=== PATIENT | female | born 1940 | race Caucasian/White ===

== ENCOUNTER 2017-04-12 06:26 | Inpatient (IN) | payer MEDICARE, OTHER ==
[2017-04-09 08:25] VITALS: BMI 24.5
[2017-04-12] MEDS ORDERED: Sodium Chloride 0.9% 10 ML ONE (07:01)
[2017-04-12] MEDS ORDERED: Fentanyl 100 MCG/2 ML VIAL ONE ×3 (07:07→10:22)
[2017-04-12 07:23] LABS: #Basophils 0.1 thou/uL (0.0-0.2); #Eosinphils 0.3 thou/uL (0.0-0.7); #Lymphocytes 2.9 thou/uL (1.20-3.40); #Monocytes 0.8 thou/uL (0.11-0.59); #Neutrophils 2.9 thou/uL (1.40-6.50); %Basophils 1.1 % (0.0-1.0); %Eosinophils 3.9 % (0.0-10.0); %Lymphocytes 41.6 % (21.0-51.0); %Monocytes 11.6 % (0.0-10.0); Hematocrit 42.9 % (36.0-47.0); Red Blood Cell (RBC) Count 4.45 mill/uL (4.20-5.40); White Blood Cell (WBC) Count 6.9 thou/uL (4.8-10.8)
[2017-04-12] MEDS ORDERED: CEFAZOLIN/Water 2 GM/20 ML SYRINGE ONE (07:24)
[2017-04-12 07:41] LABS: Anion Gap 9 mmol/L (10-20); BUN (Urea Nitrogen) 20 mg/dL (9.8-20.1); Calc. Creatinine Clearance 43 mL/min (70-130); Calcium 10.3 mg/dL (7.8-10.44); Carbon Dioxide 34 mmol/L (23-31); Chloride 103 mmol/L (98-107); Estimated GFR-MDRD 54
--- NOTE | 2017-04-12 09:27 | OP ---
DATE OF PROCEDURE: 04/12/2017 SURGEON: Esteban Reynaga M.D. DOCKING PILOT: Brenden Marinelli PROCEDURE: Removal of hardware C5-6, exploration of spinal fusion C5-6, anterior cervical discectomy C4-5, interbody arthrodesis, intravertebral biomechanical device, local morselized autograft, demine ralized bone matrix, anterior titanium instrumentation C4-5. PROCEDURE IN DETAIL: The patient was brought into the operating room, intubated. She was positioned supine with the head in modest extension on a gel-filled donut. Incision was made in the right prec ervical area and dissecting medial to the sternocleidomastoid muscle we identified the anterior cervi leana spine and our level was confirmed by x-ray. We debrided anterior osteophytes, placed distraction across the disc space and completely decompressed the spinal cord at C4-5. Next, the bony endplates were decorticated for the purpose of arthrodesis and appropriately sized intravertebral biomechanica l PEEK device was brought into the field, filled with demineralized bone matrix and local morselized autograft, and tapped into place securely at C4-5. Next, an anterior plate was brought in the field and secured to C4 and C5 using two 14 mm screws at each level. The wound was then extensively irriga amanuel, immaculate hemostasis was secured, and the wound was closed in anatomic layers.
[2017-04-12] MEDS ORDERED: Promethazine HCl 25 MG/ML VIAL IM PRN ×2 (09:30→12:08)
[2017-04-12] MEDS ORDERED: Ondansetron HCl/PF 4 MG/2 ML Vial IVP PRN (09:30)
[2017-04-12] MEDS ORDERED: Promethazine HCl 25 MG/ML VIAL SLOW IVP PRN (09:30)
[2017-04-12] MEDS ORDERED: Ketorolac Tromethamine 30 MG/ML VIAL ONE ×2 (09:42→17:29)
[2017-04-12] MEDS ORDERED: tiZANidine HCl 4 MG TAB ONE (11:07)
[2017-04-12] MEDS ORDERED: Mag-Al 1200 mg/1200 mg/30 ML UDCUP PO PRN (12:08)
[2017-04-12] MEDS ORDERED: tiZANidine HCl 4 MG TAB PO PRN (12:08)
[2017-04-12] MEDS ORDERED: diphenhydrAMINE 25 MG CAP PO PRN (12:08)
[2017-04-12] MEDS ORDERED: Sodium Chloride 0.9% 1,000 ML IV SCH (12:08)
[2017-04-12] MEDS ORDERED: HYDROcodone/Acetaminophen 10/325 mg Tablet PO PRN (12:08)
[2017-04-12] MEDS ORDERED: Milk Of Magnesia 30 ML UDCUP PO PRN (12:08)
[2017-04-12] MEDS ORDERED: Morphine 4 MG/ML Carpuject SLOW IVP PRN (12:08)
[2017-04-12] MEDS ORDERED: diphenhydrAMINE 50 MG/ML VIAL IVP PRN (12:08)
[2017-04-12] MEDS ORDERED: Promethazine HCl 12.5 MG SUPP PR PRN (12:08)
[2017-04-12] MEDS ORDERED: Morphine PF 1 MG/ML SYR IVP PRN (12:26)
[2017-04-12] MEDS ORDERED: MORPHINE 10 MG/ML SYRINGE SLOW IVP PRN (12:28)
[2017-04-12] MEDS ORDERED: hydrALAZINE 20 MG/ML VIAL SLOW IVP PRN (12:34)
[2017-04-12] MEDS: Sodium Chloride 0.9% 1,000 ML IV SCH (13:26)
[2017-04-12] MEDS: CEFAZOLIN/Water 2 GM/20 ML SYRINGE SLOW IVP SCH ×2 (13:40→22:29)
[2017-04-12] MEDS: Ondansetron HCl/PF 4 MG/2 ML Vial IVP PRN (16:37)
[2017-04-12] MEDS: Ketorolac Tromethamine 30 MG/ML VIAL IVP SCH (17:15)
[2017-04-12] MEDS ORDERED: Dexamethasone 20 MG/5 ML VIAL ONE (17:29)
[2017-04-12] MEDS ORDERED: Glycopyrrolate 0.2 MG/ML 5 ML SYRINGE ONE (17:29)
[2017-04-12] MEDS ORDERED: Ondansetron HCl/PF 4 MG/2 ML Vial ONE (17:29)
[2017-04-12] MEDS ORDERED: Propofol 200 MG/20 ML VIAL ONE (17:29)
[2017-04-12] MEDS ORDERED: Lidocaine 1% PF 5 ML VIAL ONE (17:29)
[2017-04-12] MEDS: Metoprolol Tartrate 25 MG TAB PO SCH (20:50)
[2017-04-12] MEDS ORDERED: Morphine 10 MG/ML CARPUJECT SLOW IVP PRN (21:05)
--- NOTE | 2017-04-12 23:43 | CON ---
DATE OF CONSULTATION: 04/12/2017 REASON FOR ADMISSION: Neck pain. The patient had a procedure removal of hardware from C5-C6, explor ation of the spinal fusion, C5-C6 anterior cervical discectomy, C4-C5 interbody and arthrodesis, intr avertebral biomechanical device. REASON FOR CONSULT: Medical management. CONSULTING PHYSICIAN: Dr. Reynaga. BRIEF HOSPITAL COURSE: This is a 77-year-old pleasant lady who came into the hospital for the above- mentioned procedure for the neck pain. She had the procedure and is doing great and has been admitte d to the hospital for observation. I have been consulted for medical management. At the time of my interview, she says the pain control is adequate. No nausea, no vomiting, no chest pain, no diarrhea or dysuria. PAST MEDICAL HISTORY: Significant for coronary artery disease, hypertension, hyperlipidemia, periphe ral vascular disease, chronic pain, and osteoarthritis. PAST SURGICAL HISTORY: Significant for bilateral iliac artery stenting, aortoiliac construction surg jocelyn in 2004. The patient also had a , hysterectomy, PTCA with stent placement to the RCA an d of the left main artery in 11/2012. FAMILY HISTORY: Father at age of 83, cause of was COPD I think. Mother at age of 79 , cause of was CVA. SOCIAL HISTORY: Used to smoke, does not smoke anymore. No alcohol use. No recreational drug use. Lives with her , who has 3 strokes and takes care of him. She also works part-time. ALLERGIES: NIACIN, PLETAL, VYTORIN, AND AUGMENTIN. CURRENT MEDICATIONS: Please see MAR. REVIEW OF SYSTEMS: Significant for some surgical discomfort in the neck, otherwise no fever, no chil ls, no headache, no appetite, no hearing loss, no latencies, no cough. No chest pain, diarrhea, dysu janeen, or polyuria. No memory or mood changes. PHYSICAL EXAMINATION: VITAL SIGNS: Blood pressure is 103/51, afebrile, pulse is 55, respirations 18, breathing comfortably on 2 liters. GENERAL: The patient is lying in bed, in mild distress because of the surgery. HEENT: Atraumatic, normocephalic. Pupils are equally round and reactive to light. Extraocular move ments are intact. Mucous membranes are moist. NECK: No JVD. Scar. There is a dressing seen on the neck. CHEST: Breath sounds heard. No rales or rhonchi. HEART: S1, S2. No murmurs, rubs, or gallops. ABDOMEN: Soft. EXTREMITIES: No cyanosis, clubbing, or edema. Distal pulses present. NEUROLOGICAL: Alert and oriented. No cranial deficits. No sensorimotor deficits. LABORATORY DATA: WBC count is 6.9, hemoglobin is 13.4. Sodium is 142, potassium is 3.7, BUN is 20, creatinine is 0.99. ASSESSMENT AND PLAN: 1. High blood pressure. We will put the patient on lisinopril 20 mg p.o. daily and metoprolol tartr ate 25 p.o. b.i.d. and give her p.r.n. hydralazine as she starts eating more and comes back to normal . We will resume home medications if needed. 2. Chronic back pain. We will continue pain medications and post-surgical pain is controlled with I V morphine. 3. Peripheral artery disease appears to be stable right now. 4. Coronary artery disease, status post stent, stable right now. 5. Hyperlipidemia. We will continue home medications at the time of discharge. 6. Osteoarthritis, stable as of now. Thank you Dr. Reynaga for letting me to participate in this patient's care. I will follow with you and make necessary recommendations as the clinical course evolves.
[2017-04-13] MEDS: Ketorolac Tromethamine 30 MG/ML VIAL IVP SCH ×2 (00:06→06:02)
[2017-04-13] MEDS: HYDROcodone/Acetaminophen 10/325 mg Tablet PO PRN ×3 (00:09→08:21)
[2017-04-13] MEDS ORDERED: hydrALAZINE 20 MG/ML VIAL SLOW IVP PRN ×2 (06:27)
[2017-04-13] MEDS: Sodium Chloride 0.9% 1,000 ML IV SCH (06:40)
[2017-04-13] MEDS: Ondansetron HCl/PF 4 MG/2 ML Vial IVP PRN (07:14)
[2017-04-13] MEDS: Metoprolol Tartrate 25 MG TAB PO SCH (07:51)
[2017-04-13 08:26] VITALS: BP 161/67; TEMP 97.6
[2017-04-13] MEDS ORDERED: Lisinopril 20 MG TAB PO SCH (09:00)
== END 2017-04-13 09:08 | disposition home or self-care (01) | DRG 472 ==
LOC: SURG A 06:26 → 3SE 11:44
PROVIDERS: ADMIT Neurological Surgery; ATTEND Neurological Surgery
PROC: 0RG20A0 Fusion of 2 or more Cervical Vertebral Joints with Interbody Fusion Device, Anterior Approach, Anterior Column, Open Approach (ICD-10-PCS; principal; 2017-04-12)
PROC: 01NB0ZZ Release Lumbar Nerve, Open Approach (ICD-10-PCS; 2017-04-12)
PROC: 0SB20ZZ Excision of Lumbar Vertebral Disc, Open Approach (ICD-10-PCS; 2017-04-12)
PROC: 0SP004Z Removal of Internal Fixation Device from Lumbar Vertebral Joint, Open Approach (ICD-10-PCS; 2017-04-12)
DX: M50.321 Other cervical disc degeneration at C4-C5 level (principal); M47.12 Other spondylosis with myelopathy, cervical region; I10 Essential (primary) hypertension; E78.5 Hyperlipidemia, unspecified; M19.90 Unspecified osteoarthritis, unspecified site; G89.29 Other chronic pain; I73.9 Peripheral vascular disease, unspecified; Z87.891 Personal history of nicotine dependence; Z88.0 Allergy status to penicillin; Z88.8 Allergy status to other drugs, medicaments and biological substances; Z82.3 Family history of stroke; Z83.6 Family history of other diseases of the respiratory system
CPT/HCPCS: 76001; 80048; 85025; A4216; C1713; J1100; J1885; J2001; J2270; J2274; J2405; J2704; J3010; J3490

== ENCOUNTER 2017-04-27 09:47 | Outpatient (CLI) | payer MEDICARE, OTHER ==
--- NOTE | 2017-04-27 12:23 | RAD ---
RADIOGRAPH CERVICAL SPINE 3 VIEWS: HISTORY: 77-year-old female with cervicalgia, M54.2. Follow up surgery. COMPARISON: 01-06-17 FINDINGS: The previously demonstrated anterior metallic plate and screws at C5 and C6 have been removed. The ma rkers for the interbody cage remain at the C5-6 intervertebral space. There is osseous fusion between the C5 and C6 vertebral bodies. There has been interval widening of the previously severely narrowed C4-5 disc space, by placement of interbody cage (indicated by tiny metallic markers). There has been interval placement of anterior m etallic plate with screws, at C4 and C5. The retrolisthesis of C4 on C5 remains. Mild grade I anterolisthesis of C6 on C7 due to degenerative facet disease, is unchanged. Slightly th icker prevertebral soft tissues now compared to the previous study. Vertebral body heights are mainta ined. Atlantoaxial joints and odontoid process are normal. Diffuse osteopenia. IMPRESSION: 1. Interval anterior cervical discectomy and fusion procedure at C4-5, since the prior study. 2. Interval removal of ACDF hardware from C5-6 since the previous study. 3. Successful ankylosis between C5 and C6. GABY POS: [facility]
== END 2017-04-27 09:48 | disposition home or self-care (01) ==
LOC: TBSIIMAG 09:47
PROVIDERS: ATTEND Physician Assistant
DX: M54.2 Cervicalgia (principal); Z98.1 Arthrodesis status
CPT/HCPCS: 72040

== ENCOUNTER 2017-06-08 13:23 | Outpatient (CLI) | payer MEDICARE, OTHER ==
--- NOTE | 2017-06-08 14:52 | RAD ---
CERVICAL SPINE 3 VIEWS: HISTORY: Neck pain. Prior surgery. COMPARISON: 04/27/17. FINDINGS: Anterior fixation plate and interbody fusion material at the C4-5 level is again demonstrated without perihardware lucency. Interbody fusion material at the C5-6 level is again demonstrated. Vertebral body heights are maintained. Osteophytosis throughout the cervical spine is similar in soumya earance from previous study. There is calcification over each carotid bifurcation. IMPRESSION: 1. Postoperative changes of cervical spine. No acute osseous abnormalities. 2. Atherosclerosis. POS: [facility]
== END 2017-06-08 13:24 | disposition home or self-care (01) ==
LOC: TBSIIMAG 13:23
PROVIDERS: ATTEND Neurological Surgery
DX: M47.892 Other spondylosis, cervical region (principal); I70.90 Unspecified atherosclerosis; Z98.890 Other specified postprocedural states
CPT/HCPCS: 72040

== ENCOUNTER 2017-07-29 12:52 | Outpatient (CLI) | payer MEDICARE, OTHER ==
--- NOTE | 2017-07-29 14:50 | RAD ---
CERVICAL SPINE SERIES THREE VIEWS: History: Headaches, neck pain, left arm numbness. FINDINGS: There are extensive carotid bulb calcifications noted. Post-operative changes of the spine are noted. There is anterior plate and screws placed at the C4-5 level and bony fusion across C5-6. Markers are of the disc implants are within the confines of the disc levels. There are some degenerative osteoph ytic changes at C6-7. IMPRESSION: Postoperative changes and arthritic changes of the spine. Stable overall exam since a 06-08-17 study. POS: [facility]
== END 2017-07-29 12:53 | disposition home or self-care (01) ==
LOC: TBSIIMAG 12:52
PROVIDERS: ATTEND Neurological Surgery
DX: M47.12 Other spondylosis with myelopathy, cervical region (principal); Z98.890 Other specified postprocedural states
CPT/HCPCS: 72040

== ENCOUNTER → 2017-08-24 | Day surgery (SDC) | payer MEDICARE, OTHER ==
[~2017-08-24] MED LIST: Iopamidol-M 300 61% 15 ML VIAL ONE; Prevnar 13-Val Conj/PF 0.5 ML SYRINGE IM ONE
[2017-08-24 07:15] VITALS: TEMP 98.4
--- NOTE | 2017-08-24 10:53 | RAD ---
MYELOGRAM CERVICAL SPINE: Date: 08/24/17 HISTORY: Cervical stenosis. COMPARISON: None. FINDINGS: The patient was brought to the fluoroscopy suite. All questions were answered. Patient's back was prepped and draped in the normal sterile fashion. 3 mL lidocaine was instilled int o the superficial and deep soft tissues. 11 mL of contrast was instilled into the thecal sac using a 22 gauge spinal needle. The patient was p remedicated with standard prednisone and Benadryl mix. IMPRESSION: Technically successful fluoroscopic myelogram. POS: [facility]
--- NOTE | 2017-08-24 11:07 | CT ---
CT CERVICAL SPINE WITH CONTRAST; HISTORY: M48.02 (cervical stenosis). COMPARISON: None. FINDINGS: There are dense calcifications of the proximal internal carotid arteries and the carotid bulbs bilate rally. A very heterogeneous appearance of the thyroid with small nodules. There is mild central lob ular emphysema of the lung apices. No pneumothorax. The remainder of the paraspinal soft tissues is unremarkable. ACDF hardware at C4-C5 with diskectomy changes without hardware complication. Satisfactory appearanc e of the hardware. Prior fusion of C5-C6 with the C5-C6 disk space fused. There is normal cervical lordosis. The cerebellar tonsils terminate at the level of the foramen magn um. There is narrowing of the atlantodental articulation. There is no acute fracture or malalignment of the cervical spine. The mastoids are clear. The occipital condyles are intact. Levels are as follows: C2-C3: Mild degenerative disk space narrowing. No neural foramina or spinal canal narrowing. C3-C4: Mild circumferential disk bulge. Mild facet arthrosis. Moderate to severe left and mild rig ht sided facet arthropathy. Facet arthrosis causes moderate left-sided neural foraminal narrowing. C4-C5: Fusion. There is also ligamentum flavum hypertrophy. The thickened ligamentum flavum narrow s the dorsal CSF space. The spinal canal measures approximately 9 mm. The hypertrophic facet change s and uncinate process hypertrophy laterally causes moderate to severe right-sided neural foraminal n arrowing. C5-C6: Fusion changes. There is extensive uncinate process hypertrophy on the right, as well as mod erate hypertrophic facet changes. There is moderate to severe right-sided neural foraminal narrowing . Only mild left-sided neural foraminal narrowing. C6-C7: Low grade degenerative disk space height loss. Mild narrowing of the ventral CSF space. No significant spinal canal or neural foraminal narrowing. IMPRESSION: Multilevel spondylosis, predominantly neural foraminal narrowing, due to a combination of hypertrophi c facet changes, as well as uncinate process hypertrophy, as described above. No significant spinal canal narrowing. POS: [facility]
== END ==
LOC: RAD 06:47
PROVIDERS: ATTEND Neurological Surgery
PROC: B00B1ZZ Plain Radiography of Spinal Cord using Low Osmolar Contrast (ICD-10-PCS; principal; 2017-08-24)
DX: M48.02 Spinal stenosis, cervical region (principal); Z88.1 Allergy status to other antibiotic agents; Z88.8 Allergy status to other drugs, medicaments and biological substances
CPT/HCPCS: 62302; 72126

== ENCOUNTER 2017-09-19 19:58 | Observation (INO) | payer MEDICARE, OTHER ==
[2017-09-19 21:03] LABS: #Eosinphils 0.3 thou/uL (0.0-0.7); #Lymphocytes 2.7 thou/uL (1.20-3.40); #Monocytes 0.9 thou/uL (0.11-0.59); #Neutrophils 2.9 thou/uL (1.40-6.50); %Basophils 0.4 % (0.0-1.0); %Lymphocytes 38.9 % (21.0-51.0); %Monocytes 13.5 % (0.0-10.0); %Neutrophils 42.2 % (42.0-75.0); Hemoglobin 11.6 g/dL (12.0-16.0); Mean Corpuscular HGB CONC 32.6 g/dL (32.0-36.0); Mean Corpuscular Hemoglobin 30.3 pg (27.0-31.0); Mean Corpuscular Volume 93.1 fl (81.0-99.0); Platelet Count 266 thou/uL (130-400); RBC Distribution Width 12.6 % (11.5-14.5); Red Blood Cell (RBC) Count 3.81 mill/uL (4.20-5.40); White Blood Cell (WBC) Count 6.9 thou/uL (4.8-10.8)
[2017-09-19 21:08] LABS: INR-International Normal Ratio 1.1; PTT 25.5 SEC (22.9-36.1); Prothrombin Time 13.8 SEC (12.0-14.7)
[2017-09-19 21:23] LABS: ALT (SGPT) 10 U/L (8-55); AST (SGOT) 17 U/L (5-34); Albumin 3.9 g/dL (3.4-4.8); Alkaline Phosphatase 39 U/L (40-150); Anion Gap 11 mmol/L (10-20); BUN (Urea Nitrogen) 31 mg/dL (9.8-20.1); Bilirubin, Total 0.3 mg/dL (0.2-1.2); Calc. Creatinine Clearance 0 mL/min (70-130); Calcium 9.5 mg/dL (7.8-10.44); Carbon Dioxide 27 mmol/L (23-31); Chloride 105 mmol/L (98-107); Estimated GFR-MDRD 44; Globulin 2.4 g/dL (2.4-3.5); Glucose 86 mg/dL (83-110); Potassium 4.1 mmol/L (3.5-5.1); Protein, Total 6.3 g/dL (6.0-8.3); Sodium 139 mmol/L (136-145)
[2017-09-20] MEDS ORDERED: Morphine 4 MG/ML VIAL SLOW IVP PRN (00:23)
[2017-09-20] MEDS ORDERED: Diabetic Tussin 200 MG/10 ML UDCUP PO PRN (00:24)
[2017-09-20] MEDS ORDERED: Senokot 8.6 MG TAB PO PRN ×2 (00:24)
[2017-09-20] MEDS ORDERED: Mag-Al 1200 mg/1200 mg/30 ML UDCUP PO PRN (00:24)
[2017-09-20] MEDS ORDERED: cloNIDine 0.1 MG TAB PO PRN (00:24)
[2017-09-20] MEDS ORDERED: Nitroglycerin 0.4 MG TAB (25 Tab Bottle) SL PRN (00:24)
[2017-09-20] MEDS ORDERED: Ondansetron HCl/PF 4 MG/2 ML Vial IVP PRN (00:24)
[2017-09-20] MEDS ORDERED: Lorazepam 1 MG TAB PO PRN (00:24)
[2017-09-20] MEDS ORDERED: Benzonatate 100 MG CAP PO PRN (00:24)
[2017-09-20] MEDS ORDERED: Loratadine 10 MG TAB PO PRN (00:24)
[2017-09-20] MEDS ORDERED: hydrALAZINE 20 MG/ML VIAL SLOW IVP PRN (00:24)
[2017-09-20] MEDS ORDERED: Bisacodyl 5 MG TAB PO PRN ×2 (00:24)
[2017-09-20] MEDS ORDERED: Acetaminophen 325 MG TAB PO PRN (00:24)
[2017-09-20] MEDS ORDERED: Calcium Carbonate 500 MG ChewTAB PO PRN (00:24)
[2017-09-20] MEDS ORDERED: HYDROcodone/Acetaminophen 5/325 mg Tablet PO PRN (00:24)
[2017-09-20 00:45] VITALS: BMI 23.3
[2017-09-20] MEDS: HYDROcodone/Acetaminophen 5/325 mg Tablet PO PRN ×2 (01:01→07:48)
[2017-09-20] MEDS: Sodium Chloride 0.9% 1,000 ML IV SCH ×2 (01:01→14:12)
[2017-09-20] MEDS ORDERED: Diazepam 2 MG TAB PO SCH ×2 (01:15→09:00)
--- NOTE | 2017-09-20 02:50 | HP ---
DATE OF ADMISSION: 09/19/2017 PRIMARY CARE PHYSICIAN: Francis Barnard M.D. CHIEF COMPLAINT: Rectal bleed. HISTORY OF PRESENT ILLNESS: Ms. Jazmine Myers is a pleasant 77-year-old female with past medical hi story of coronary artery disease, hypertension, dyslipidemia, peripheral vascular disease, chronic pa in and osteoarthritis who presented to the ER with above-mentioned complaint. History is mainly obta ined by the patient herself and electronic medical records have been reviewed. The patient has recen tly undergone revision, fusion, and extension of anterior cervical diskectomy and fusion in 04/2017 jeffy Reynaga. Today, she came to the emergency room with the rectal bleed complaint. She states that she was takin g a shower when she found out that she is having rectal bleed. She has soaked about 4 to 5 wash rags and then a towel in the ER with that. She denies any vaginal bleed or any bleeding in her urine. S he denies any similar symptoms in the past, but does report that many, many years ago she was told th at she has internal hemorrhoids. She is somewhat constipated because of the pain medication that she takes on a chronic basis. She also notes that recently she has to increase her aspirin because of the chronic pain. She has a lot of pain in her neck because of severe osteoarthritis and multiple neck surgeries and follows up w deidra Freeman. She was prescribed tramadol and she also has a fentanyl patch, but this does no t seem to be taking care of the pain very well. She has started to take 2 tablets of 325 mg aspirin on and off for the last 2 weeks. She does not take any other blood thinners or NSAIDs. Upon presentation to the emergency room, she was hemodynamically stable. Her hemoglobin was stable a t 11.6, baseline being 12 to 13. She has no more bleeding at this time. I discussed her care with her and offered her that she most likely will require a colonoscopy. She d id tell me that her son has significant history of Crohn's disease requiring multiple surgeries. How ever at this time, she has a care provider for her who has had stroke and has cancer, and is refusing any invasive workup for now. She would like to discuss this with the housekeeping/laundry and may be scheduled at a later date. She is now being admitted under observation status for monitoring her hemoglobin and hematocrit and t o monitor for any further bleed. The patient denies any recent illnesses. She denies any abdominal pain, vomiting, nausea or diarrhea . She denies any hematemesis or melena. PAST MEDICAL HISTORY: 1. Hypertension. 2. Dyslipidemia. 3. History of coronary artery disease. 4. Osteoarthritis. 5. Chronic pain, follows with Dr. Freeman. 6. Peripheral vascular disease. PAST SURGICAL HISTORY: 1. Bilateral iliac artery stenting. 2. Aortoiliac reconstruction surgery in 2004. 3. . 4. Hysterectomy. 5. PTCA with stent placement to the RCA and left main artery in 2012. FAMILY HISTORY: Father at the age of 83 likely chronic obstructive pulmonary disease. Mother d ied at the age of 79 with CVA. Her son has Crohn's disease requiring multiple surgeries. SOCIAL HISTORY: She lives at home and takes care of her who has had 3 strokes and has cancer . One of her adult son lives with them, but is not able to provide much care because he is working. She has no history of drug, tobacco, or alcohol abuse. ALLERGIES: NIACIN, PLETAL, VYTORIN, AUGMENTIN, IODINATED CONTRAST, AMOXICILLIN, and CLAVULANIC ACID. CURRENT HOME MEDICATIONS: Brandon 7.5/325 one to two tablets every 6 hours as needed, fish oil 1200 mg daily, diazepam 2 mg p.o. b.i.d., aspirin 81 mg daily, CoQ10 of 100 mg daily, metoprolol succinate 5 0 mg at bedtime, lisinopril/hydrochlorothiazide 20/25 mg 1 tablet daily, fentanyl patch 50 mcg every 3 days, and Crestor 10 mg p.o. at bedtime. REVIEW OF SYSTEMS: A 12-point review of systems was done and is negative except what was mentioned i n the history and physical. LABORATORY DATA: CBC shows hemoglobin of 11.6, hematocrit 35.5. Serum PT, PTT, and INR are within n ormal limits. Serum chemistries show BUN of 31, creatinine of 1.19, alkaline phosphatase 39, otherwi se unremarkable. PHYSICAL EXAMINATION: VITAL SIGNS: Upon presentation, blood pressure 151/75, pulse of 87, respirations 16, saturating 92% on room air, and temperature 99. GENERAL: No acute distress. She is sitting up on the side of the bed, awake, alert, oriented x3. HEENT: Mucous membranes are slightly dry. No oropharyngeal exudate or erythema. Head is normocepha lic, atraumatic. Pupils equal, reactive to light and accommodation. Extraocular movement intact. NECK: Supple without any lymphadenopathy, JVD or bruit. CHEST: Clear to auscultation without any wheezing, rales or rhonchi. Rate and rhythm is regular wit hout any murmur, rubs or gallops. ABDOMEN: Soft, nontender, nondistended, positive bowel sounds. EXTREMITIES: Free of any cyanosis, clubbing, or edema. NEUROLOGIC: Nonfocal. SKIN: Free of any rashes or bruises. Feels warm and dry to touch. PSYCHIATRIC: Normal affect. RECTAL: Rectal exam was done by the emergency room physician, which was noticeable for external hemo rrhoid without any acute bleeding. IMPRESSION AND PLAN: 1. Rectal bleed. This is most likely a hemorrhoidal bleed, but because of patient's increase use of NSAIDs in the form of aspirin lately and also family history of Crohn's disease, she will be benefit ed by a colonoscopy. At this time, she is hemodynamically stable and does not require any transfusio ns. We will recheck her hemoglobin in the morning. The emergency room physician has already contact ed the housekeeping/laundry psychological operations specialist, Dr. Saenz and we will request consultation from him in the morning as well. The patient is not ready for colonoscopy at this time because she has to take care of her , so we will let her eat. She can schedule an outpatient colonoscopy if required. We will co ntinue her on some laxatives to prevent any constipation and more hemorrhoidal bleed, but at this concha e, other causes of lower GI bleed like diverticulosis cannot be ruled out. No clinical signs and sym ptoms to suggest ischemic colitis; however, she has history of significant coronary artery disease an d peripheral vascular disease, which made this diagnosis also likely. At this time, she has no abdom inal pain. We will hold any aspirin. We will not give her any pharmacological deep venous thrombosi s prophylaxis and monitor her closely. We will type and screen her for blood transfusion if necessar y. 2. Acute kidney insufficiency, this is likely secondary to dehydration. The patient will be resusci tated with gentle IV fluids and we will recheck in the morning. At this time, we will hold her JOLLY i nhibitor and diuretics to prevent further renal injury. Avoid any nephrotoxic agents as well. 3. History of coronary artery disease. We will restart her metoprolol, but hold the aspirin for rec shaun bleed. Hold the lisinopril/hydrochlorothiazide because of acute renal insufficiency. 4. Hypertension. Resume home medication except for JOLLY inhibitor and hydrochlorothiazide and monito r. 5. Family history of Crohn's disease in her son. 6. History of peripheral arterial disease appears to be stable right now. 7. Chronic pain. We will resume her home medications and add p.r.n. medications for further pain co ntrol. She follows up with Dr. Freeman in the outpatient setting. 8. Dyslipidemia. We resume her Crestor. 9. Code status: FULL CODE, discussed with the patient. DISPOSITION: Ms. Jazmine Myers is currently being admitted under observation status for rectal blee d for H and H monitoring and further workup. Further management will depend upon her clinical course and recommendations from housekeeping/laundry.
[2017-09-20 04:42] LABS: #Eosinphils 0.3 thou/uL (0.0-0.7); #Monocytes 0.8 thou/uL (0.11-0.59); #Neutrophils 3.2 thou/uL (1.40-6.50); %Basophils 0.4 % (0.0-1.0); %Eosinophils 3.9 % (0.0-10.0); %Monocytes 10.9 % (0.0-10.0); %Neutrophils 43.8 % (42.0-75.0); Hemoglobin 10.7 g/dL (12.0-16.0); Mean Corpuscular HGB CONC 32.8 g/dL (32.0-36.0); Mean Corpuscular Hemoglobin 30.5 pg (27.0-31.0); Mean Corpuscular Volume 93.1 fl (81.0-99.0); Mean Platelet Volume 6.9 fL (7.4-10.4); Platelet Count 247 thou/uL (130-400); RBC Distribution Width 12.5 % (11.5-14.5); Red Blood Cell (RBC) Count 3.51 mill/uL (4.20-5.40); White Blood Cell (WBC) Count 7.2 thou/uL (4.8-10.8)
[2017-09-20 04:59] LABS: Anion Gap 8 mmol/L (10-20); BUN (Urea Nitrogen) 26 mg/dL (9.8-20.1); Calc. Creatinine Clearance 43 mL/min (70-130); Calcium 9.2 mg/dL (7.8-10.44); Carbon Dioxide 28 mmol/L (23-31); Chloride 106 mmol/L (98-107); Estimated GFR-MDRD 57; Glucose 90 mg/dL (83-110); Potassium 3.8 mmol/L (3.5-5.1); Sodium 138 mmol/L (136-145)
[2017-09-20] MEDS ORDERED: fentaNYL 50 mcg/hour Patch TD SCH ×2 (09:00→21:00)
[2017-09-20] MEDS ORDERED: Fish Oil 1,000 MG CAP PO SCH (09:00)
[2017-09-20] MEDS ORDERED: Ubidecarenone 50 MG CAP PO SCH (09:00)
[2017-09-20 12:15] VITALS: BP 152/70; TEMP 98.2
[2017-09-20 12:39] LABS: Hemoglobin 12.6 g/dL (12.0-16.0)
[2017-09-20] MEDS ORDERED: Rosuvastatin 10 MG TAB PO SCH (21:00)
--- NOTE | 2017-09-21 08:06 | CON ---
DATE OF CONSULTATION: 09/20/2017 REFERRING PHYSICIAN: Dr. Linh Reeder. REASON FOR CONSULTATION: Rectal bleeding. HISTORY OF PRESENT ILLNESS: Ms. Jazmine Myers is a very pleasant 77-year-old female hospi talized with hematochezia. The bleeding is painless. The bleeding is bright red. The bleeding occu rs with bowel movements. The patient has no abdominal pain, no nausea, no vomiting. No similar epis odes in the past. The patient has been seeing Dr. Francis Barnard over the years. Although she has bee n advising a colonoscopy in the past, she never had a colonoscopy. She tells me that there is no nee d for a colonoscopy obviously because she never had any problem with bleeding or any abdominal pain. The patient's bleeding is something new, which never had it before. She has been recently constipat ed and bleeding episode occurred without any straining. The patient has no family history of colon c ancer. There is no history of abdominal cramping or any ischemic bowel disease. The patient is know n to have a coronary artery disease, also peripheral vascular disease. She has had coronary artery s tent placement and also has had peripheral artery stent placement done by Dr. Izaiah Wang. She does see Dr. Izaiah Wang off and on. However, she is not taking any blood thinners solely on aspirin. Th e patient denies dyspepsia. No history of any abdominal pain, nausea, vomiting. On admission, her h emoglobin was normal at 11.6, hematocrit 35.5. She had a CBC done on 08/27/2017, at that time her he moglobin was at 12.9, hematocrit 40.4. Since admission, the patient has had no more bleeding. [facility] er CBC done this morning showed blood count dropping from 11.6 to 10.7, hematocrit 32.7, platelet cou nt is normal at 247,000. The patient was advising a colonoscopy and patient really does not stay for colonoscopy. She tells me that her has metastatic prostate cancer. She wants to leave the hospital as soon as possible. Of course she is agreeable to come back for a colonoscopy later on. S he has no other relevant history. ALLERGIES: Multiple include NIACIN, PLETAL, VYTORIN, AUGMENTIN, IODINE, AMOXICILLIN, and CLAVULANIC ACID. SOCIAL HISTORY: The patient is . She has no history of smoking or any alcohol abuse. No his tory of drug abuse. MEDICAL ILLNESSES: 1. Hypertension. 2. Hyperlipidemia. 3. Coronary artery disease. 4. Osteoarthritis. 5. Chronic pain, especially over the cervical area pain and also bilateral shoulder pain. 6. Peripheral vascular disease, status post stent placement. PAST SURGICAL HISTORY: 1. . 2. Hysterectomy. 3. PTCA stent placement. 4. Periphery artery stent placement. 5. Iatrogenic reconstruction in 1999. FAMILY HISTORY: Father with COPD. Mother with CVA. Son with Crohn's disease. MEDICATIONS: List reviewed. REVIEW OF SYSTEMS: Ten-point system reviewed. Constitutional: No history of fever, no weight loss with exercise tolerance. Respiratory system: No history of chronic cough, hemoptysis, dyspnea. Car diovascular System: No chest pain, no palpitation, no dyspnea, orthopnea, or PND. Gastrointestinal: As stated in the history of present illness. Genitourinary: No dysuria, hematuria, or frequent ur ination. Musculoskeletal: History of chronic pain, back pain, and also cervical area pain. Neurops ychiatry: Unremarkable. PHYSICAL EXAMINATION: GENERAL: The patient appears very comfortable. She is awake, alert, oriented to time, place, and pe rson. She is in no distress. She is anxious to get home as soon as possible. VITAL SIGNS: Afebrile, pulse is 67, blood pressure 152/70. HEENT: Conjunctivae clear. NECK: Supple. No adenitis or thyromegaly noted. CARDIOVASCULAR SYSTEM: First and second heart sounds normal. LUNGS: Clear to auscultation. ABDOMEN: Soft to palpate. Abdomen is nondistended. Abdomen is nontender. There is no organomegaly or masses. EXTREMITIES: Reveal no edema. LABORATORY DATA: Chem-7: Sodium 139, potassium 4.1, chloride 105, bicarbonate is 27, BUN is 31, cre atinine 1.190, glucose 86, calcium 9.5. Bilirubin 0.3, AST 17, ALT 10, alkaline phosphatase is 39, a lbumin 3.9 it was slightly low at 10.7. CLINICAL IMPRESSION: A 77-year-old female with hematochezia. It is possible that she has hemorrhoid s; however, she has not had colonoscopy done in the past. Because of her age, I recommend a colonosc opy; however, she does not want to stay in the hospital for colonoscopy and she wants to come back an other time. I did speak to her son who was at the room at that time and he is also agreeable ( 7:15). The patient will be discharging later on today and bring her back in the near future for colo noscopy.
--- NOTE | 2017-09-21 09:04 | DIS ---
DATE OF DISCHARGE: 09/20/2017 DISCHARGE DISPOSITION: Home. FOLLOWUP: 1. Follow up with Dr. Francis Barnard in 1 week. 2. Follow up with Dr. Celia Brown in 1 week for outpatient colonoscopy. DISCHARGE MEDICATIONS: Proctofoam HC twice daily as needed. All other home medications were resumed . BRIEF HOSPITAL COURSE: The patient is a 77-year-old female with hemorrhoids, coronary artery disease on aspirin, hypertension, dyslipidemia, peripheral vascular disease and chronic pain, presented to [facility] with rectal bleed. Please refer to the history and physical dated 09/19/2017 for further details. The patient was admitted to the hospital with a diagnosis of rectal bleeding. Her hemoglobin and hem atocrit was 11.6 on admission that dropped to 10.7 next morning. Patient was evaluated by Gastroente rology, Dr. Brown. Patient will follow up with Dr. Brown for outpatient colonoscopy. The suzanne arredondo has been cleared for discharge by Gastroenterology. FINAL DIAGNOSES: 1. Rectal bleeding, probably secondary to hemorrhoids although other pathologies are possible. The patient will get a colonoscopy as outpatient. 2. Chronic kidney disease stage 3 with mild worsening of the creatinine, probably secondary to recta l bleed, improved with IV hydration. Repeat labs after 1 week is recommended. Primary care physicia n advised to follow. Lisinopril was held during the hospital stay. She can probably restart tomorro w. 3. Coronary artery disease. 4. Hypertension. 5. Family history of Crohn's disease. 6. Peripheral vascular disease. 7. Chronic pain syndrome. 8. Dyslipidemia. 9. Mild anemia, probably secondary to acute gastrointestinal blood loss. Plan of care was discussed with the patient in detail. She stated understanding.
== END 2017-09-20 14:30 | disposition home or self-care (01) ==
LOC: ERS 19:58 → 2SW 22:05
PROVIDERS: ADMIT Internal Medicine; ATTEND Internal Medicine
DX: K92.1 Melena (principal); I12.9 Hypertensive chronic kidney disease with stage 1 through stage 4 chronic kidney disease, or unspecified chronic kidney disease; N18.3 Chronic kidney disease, stage 3 (moderate); E78.5 Hyperlipidemia, unspecified; N28.9 Disorder of kidney and ureter, unspecified; I25.10 Atherosclerotic heart disease of native coronary artery without angina pectoris; I73.9 Peripheral vascular disease, unspecified; D64.9 Anemia, unspecified; G89.4 Chronic pain syndrome; Z83.79 Family history of other diseases of the digestive system; M19.90 Unspecified osteoarthritis, unspecified site; Z88.8 Allergy status to other drugs, medicaments and biological substances; Z88.1 Allergy status to other antibiotic agents; Z91.041 Radiographic dye allergy status
CPT/HCPCS: 80048; 80053; 85014; 85018; 85025 ×2; 85610; 85730; 86850; 86900; 86901; 96360; 96361; 97139; 99284; G0378; 36415

== ENCOUNTER 2017-10-20 07:29 | Day surgery (SDC) | payer MEDICARE, OTHER ==
[2017-10-19 08:30] VITALS: BMI 23.2
[2017-10-20] MEDS ORDERED: PROPOFOL 200 MG/20 ML VIAL ONE (12:50)
--- NOTE | 2017-10-20 13:14 | OP ---
DATE OF SURGERY: 10/20/2017 OPERATIVE PROCEDURE: Colonoscopy. PREOPERATIVE DIAGNOSIS: Hematochezia. POSTOPERATIVE DIAGNOSES: 1. Melanosis coli. 2. Retained fecal residue throughout the colon, which was washed out. Some areas not well visualize d. 3. Mild sigmoid diverticular disease. 4. Hemorrhoids, hypertrophic anal papilla. PROCEDURE IN DETAIL: The patient was placed on her left lateral position and was given sedation by A nesthesia Department. A rectal exam was done before the scope was advanced into the rectum. No lesi on felt on rectal exam. A [employer]ax video colonoscope was introduced into the rectum and advanced all t he way into the cecum. The patient's prep is fair. The patient had retained fecal residue throughou t the colon from the rectosigmoid all the way to the cecum. Water was used to irrigate and washout. The mucosa appeared normal. The patient has melanosis coli indicating chronic laxative use. The il eocecal area, cecum, ascending colon, no pathology. The hepatic flexure, transverse colon, splenic f lexure, descending colon, no pathology seen. The sigmoid colon showed mild diverticular disease. Re troflexion of the scope in the rectum shows hemorrhoids, hypertrophic anal papilla. DISCHARGE RECOMMENDATIONS: This is a 77-year-old female, who came in for colonoscopy with hematochezia. The colonoscopy showed hemorrhoids and also sigmoid diverticular disease, melanosis co li. DISCHARGE RECOMMENDATIONS: 1. The patient was advised to call me if she developed abdominal pain or hematochezia. 2. High-fiber diet. 3. Follow up with Dr. Francis Barnard.
== END 2017-10-20 13:12 | disposition home or self-care (01) ==
LOC: SDC 07:29
PROVIDERS: ATTEND Internal Medicine Gastroenterology
PROC: 0DJD8ZZ Inspection of Lower Intestinal Tract, Via Natural or Artificial Opening Endoscopic (ICD-10-PCS; principal; 2017-10-20)
DX: K92.1 Melena (principal); K57.30 Diverticulosis of large intestine without perforation or abscess without bleeding; K64.9 Unspecified hemorrhoids; K64.4 Residual hemorrhoidal skin tags; K63.89 Other specified diseases of intestine; I10 Essential (primary) hypertension; Z79.82 Long term (current) use of aspirin; Z79.899 Other long term (current) drug therapy; Z88.0 Allergy status to penicillin; Z91.048 Other nonmedicinal substance allergy status; Z91.041 Radiographic dye allergy status; Z88.7 Allergy status to serum and vaccine; Z88.8 Allergy status to other drugs, medicaments and biological substances; Z91.013 Allergy to seafood
CPT/HCPCS: J2704

== ENCOUNTER 2018-07-07 11:51 | Outpatient (CLI) | payer MEDICARE, OTHER ==
--- NOTE | 2018-07-07 13:38 | RAD ---
RIGHT KNEE THREE VIEWS: History: Injured knee in April, having pain ever since. FINDINGS: There are arthritic changes of the knee. There is mild medial compartment narrowing. Tiny patellofemo ral spurs are noted. Bones appear slightly demineralized. No joint effusion or fracture. IMPRESSION: Minimal arthritic changes of the knee. POS: TPC
== END 2018-07-07 11:52 | disposition home or self-care (01) ==
LOC: SCSRAD 11:51
PROVIDERS: ATTEND Family Medicine
DX: M25.561 Pain in right knee (principal); L40.0 Psoriasis vulgaris

== ENCOUNTER 2019-11-08 07:23 | Outpatient (CLI) | payer MEDICARE ==
--- NOTE | 2019-11-08 09:10 | MRI ---
MRI Cervical spine without contrast: HISTORY: Cervical stenosis of spinal canal. Patient complains of neck pain. History of prior cervical spine kim rgery. COMPARISON: MRI cervical spine on 01/06/2017 FINDINGS: Multiple hyperintense nodules are seen in each lobe of the thyroid gland. These nodules were also see n on CT cervical spine on 08/24/2017. The craniocervical junction is unremarkable. No significant cord signal abnormality. There is a linear area of increased T2-weighted signal intens ity seen in the superior cervical spinal cord at the cervical medullary junction which is most likely artifactual. Paravertebral soft tissues have a normal appearance and normal signal intensity. There are postoperative changes of the cervical spine with metallic susceptibility artifact seen rela amanuel to anterior cervical fusion at the C4-5 and C5-6 levels with findings suggesting intradiscal prostheses at these levels. C1-2:No significant stenosis. C2-3: There is no disc bulge or disc herniation. The central spinal canal and neural foramina are pat ent. C3-4: Mild broad-based disc osteophyte complex is present with slightly effaces the ventral subarachn oid space. Mild bilateral neural foraminal narrowing is present. C4-5: There is posterior osteophyte formation which effaces the ventral subarachnoid space. No signif icant neural foraminal narrowing is appreciated. The slight retrolisthesis of C4 on C5 noted on prior exam is not appreciated on today's study. C5-6: There is posterior osteophyte formation with slight effacement of the ventral subarachnoid spac e. Mild facet degenerative changes are seen. There is mild bilateral neural foraminal narrowing greater on the right. C6-7: Mild central disc protrusion is present which results in mild mass effect on the ventral subara chnoid space. Neural foramina are patent. C7-T1: There is no disc bulge or disc herniation. The central spinal canal and neural foramina are pa tent. IMPRESSION: 1. Postoperative and mild degenerative changes of the cervical spine. No high-grade central canal or neural foraminal narrowing is present. 2. Multinodular thyroid gland identified which was also seen on CT cervical spine in 2018.
== END 2019-11-08 07:24 | disposition home or self-care (01) ==
LOC: BICMRI 07:23
PROVIDERS: ATTEND Nurse Practitioner Family
DX: M48.02 Spinal stenosis, cervical region (principal); E04.2 Nontoxic multinodular goiter; M47.812 Spondylosis without myelopathy or radiculopathy, cervical region; Z98.1 Arthrodesis status
CPT/HCPCS: 72141

== ENCOUNTER 2020-10-28 12:25 | Outpatient (CLI) | payer MEDICARE | END 2020-10-28 12:26 | disposition home or self-care (01) | LOC: BICCT 12:25 | PROVIDERS: ATTEND Physician Assistant Medical | DX: R42 Dizziness and giddiness (principal) | CPT/HCPCS: 70450 ==

== ENCOUNTER 2021-09-26 10:11 | Emergency (ER) | payer MEDICARE ==
[2021-09-26 11:20] LABS: #Eosinphils 0.3 thou/uL (0.0-0.7); #Lymphocytes 1.4 thou/uL (1.20-3.40); #Monocytes 0.6 thou/uL (0.11-0.59); %Basophils 0.4 % (0.0-1.0); %Eosinophils 4.8 % (0.0-10.0); %Lymphocytes 22.8 % (21.0-51.0); %Monocytes 8.7 % (0.0-10.0); %Neutrophils 63.3 % (42.0-75.0); Hemoglobin 12.4 g/dL (12.0-16.0); Mean Corpuscular HGB CONC 31.6 g/dL (32.0-36.0); Mean Corpuscular Hemoglobin 30.7 pg (27.0-31.0); Mean Corpuscular Volume 96.9 fL (78.0-98.0); Mean Platelet Volume 7.2 fL (7.4-10.4); Platelet Count 259 thou/uL (130-400); RBC Distribution Width 13.8 % (11.5-14.5); Red Blood Cell (RBC) Count 4.06 mill/uL (4.20-5.40); White Blood Cell (WBC) Count 6.3 thou/uL (4.8-10.8)
[2021-09-26 11:34] LABS: ALT (SGPT) 14 U/L (8-55); AST (SGOT) 22 U/L (5-34); Albumin 3.9 g/dL (3.4-4.8); Alkaline Phosphatase 37 U/L (40-110); Anion Gap 13 mmol/L (10-20); BUN (Urea Nitrogen) 31 mg/dL (9.8-20.1); Bilirubin, Total 0.4 mg/dL (0.2-1.2); Calc. Creatinine Clearance 0 mL/min (70-130); Carbon Dioxide 28 mmol/L (23-31); Chloride 103 mmol/L (98-107); Globulin 2.8 g/dL (2.4-3.5); Glucose 107 mg/dL (83-110); Magnesium 2.1 mg/dL (1.6-2.6); Potassium 4.5 mmol/L (3.5-5.1); Protein, Total 6.7 g/dL (5.8-8.1); Sodium 139 mmol/L (136-145)
[2021-09-26 11:35] LABS: Bilirubin Negative (Negative); Blood, Urine Negative (Negative); Clarity Clear (Clear); Glucose, Urine (Dipstick) Normal (Negative); Ketone, Urine Negative (Negative); Leukocyte Negative Leu/uL (Negative); Nitrite Negative (Negative); Protein, Urine (Dipstick) Negative (Neg-Trace); Specific Gravity, Urine 1.016 (1.002-1.036); Urobilinogen Normal mg/dL (Less than 2)
== END 2021-09-26 12:52 | disposition home or self-care (01) ==
LOC: ERS 10:11
DX: R55 Syncope and collapse (principal); R07.9 Chest pain, unspecified; I10 Essential (primary) hypertension; I25.10 Atherosclerotic heart disease of native coronary artery without angina pectoris; L40.9 Psoriasis, unspecified; M19.90 Unspecified osteoarthritis, unspecified site; Z87.891 Personal history of nicotine dependence; Z79.899 Other long term (current) drug therapy; Z79.82 Long term (current) use of aspirin
CPT/HCPCS: 36415; 71045; 80053; 81003; 83735; 84484; 85025; 93005; 94760

== ENCOUNTER 2021-11-03 08:58 | Emergency (ER) | payer MEDICARE ==
[2021-11-03 09:50] LABS: #Eosinphils 0.2 thou/uL (0.0-0.7); #Lymphocytes 1.6 thou/uL (1.20-3.40); #Neutrophils 5.3 thou/uL (1.40-6.50); %Basophils 0.2 % (0.0-1.0); %Eosinophils 2.8 % (0.0-10.0); %Lymphocytes 19.5 % (21.0-51.0); %Monocytes 12.7 % (0.0-10.0); %Neutrophils 64.8 % (42.0-75.0); Hemoglobin 11.3 g/dL (12.0-16.0); Mean Corpuscular HGB CONC 31.2 g/dL (32.0-36.0); Mean Corpuscular Hemoglobin 30.7 pg (27.0-31.0); Mean Corpuscular Volume 98.4 fL (78.0-98.0); Mean Platelet Volume 7.3 fL (7.4-10.4); Platelet Count 222 thou/uL (130-400); RBC Distribution Width 13.4 % (11.5-14.5); Red Blood Cell (RBC) Count 3.68 mill/uL (4.20-5.40); White Blood Cell (WBC) Count 8.2 thou/uL (4.8-10.8)
[2021-11-03 10:11] LABS: ALT (SGPT) 12 U/L (8-55); AST (SGOT) 16 U/L (5-34); Albumin 3.3 g/dL (3.4-4.8); Alkaline Phosphatase 39 U/L (40-110); Anion Gap 10 mmol/L (10-20); BUN (Urea Nitrogen) 14 mg/dL (9.8-20.1); Bilirubin, Total 0.7 mg/dL (0.2-1.2); CK (CPK) 24 U/L (29-168); Calc. Creatinine Clearance 0 mL/min (70-130); Calcium 9.6 mg/dL (7.8-10.44); Carbon Dioxide 35 mmol/L (23-31); Chloride 100 mmol/L (98-107); Globulin 2.4 g/dL (2.4-3.5); Glucose 94 mg/dL (83-110); Magnesium 1.7 mg/dL (1.6-2.6); Potassium 3.8 mmol/L (3.5-5.1); Protein, Total 5.7 g/dL (5.8-8.1); Sodium 141 mmol/L (136-145)
[2021-11-03 10:33] LABS: Bilirubin Negative (Negative); Blood, Urine Negative (Negative); Clarity Clear (Clear); Glucose, Urine (Dipstick) Normal (Negative); Ketone, Urine Negative (Negative); Leukocyte Negative Leu/uL (Negative); Nitrite Negative (Negative); Protein, Urine (Dipstick) Negative (Neg-Trace); Specific Gravity, Urine 1.014 (1.002-1.036); Urobilinogen Normal mg/dL (Less than 2); pH, Urine 7.5 (5.0-9.0)
[2021-11-03] MEDS ORDERED: Carvedilol 3.125 MG TAB PO SCH (11:00)
== END 2021-11-03 11:54 | disposition home or self-care (01) ==
LOC: ERS 08:58
DX: J18.9 Pneumonia, unspecified organism (principal); M19.90 Unspecified osteoarthritis, unspecified site; L40.9 Psoriasis, unspecified; I25.10 Atherosclerotic heart disease of native coronary artery without angina pectoris; I10 Essential (primary) hypertension; Z87.891 Personal history of nicotine dependence; Z79.82 Long term (current) use of aspirin; Z79.899 Other long term (current) drug therapy
CPT/HCPCS: 71045; 80053; 81003; 82550; 83735; 83880; 84484; 85025; 93005

== ENCOUNTER 2021-11-28 08:09 | Outpatient (CLI) | payer MEDICARE | END 2021-11-28 08:10 | disposition home or self-care (01) | LOC: BICCT 08:09 | PROVIDERS: ATTEND Family Medicine | DX: J18.9 Pneumonia, unspecified organism (principal); R91.8 Other nonspecific abnormal finding of lung field | CPT/HCPCS: 71250 ==

== ENCOUNTER 2022-05-04 09:35 | Emergency (ER) | payer MEDICARE ==
[2022-05-04] MEDS ORDERED: cloNIDine 0.1 MG TAB ONE (10:33)
== END 2022-05-04 10:46 ==
LOC: ERS 09:35
DX: R51.9 Headache, unspecified (principal); I10 Essential (primary) hypertension; E78.5 Hyperlipidemia, unspecified; Z87.891 Personal history of nicotine dependence; Z79.82 Long term (current) use of aspirin
CPT/HCPCS: 70450; 93005

== ENCOUNTER 2022-05-14 08:23 | Emergency (ER) | payer MEDICARE ==
[2022-05-14] MEDS ORDERED: Nitroglycerin 2% Ointment 1 INCH/1 GM Packet ONE (09:02)
[2022-05-14] MEDS ORDERED: Aspirin Chewable 81 MG TAB ONE (09:02)
[2022-05-14 09:28] LABS: #Eosinphils 0.3 thou/uL (0.0-0.7); #Lymphocytes 1.4 thou/uL (1.20-3.40); #Monocytes 0.5 thou/uL (0.11-0.59); #Neutrophils 2.2 thou/uL (1.40-6.50); %Basophils 0.7 % (0.0-1.0); %Eosinophils 7.5 % (0.0-10.0); %Lymphocytes 30.8 % (21.0-51.0); %Monocytes 11.9 % (0.0-10.0); Hemoglobin 11.9 g/dL (12.0-16.0); Mean Corpuscular HGB CONC 32.6 g/dL (32.0-36.0); Mean Corpuscular Hemoglobin 32.1 pg (27.0-31.0); Mean Corpuscular Volume 98.4 fl (78.0-98.0); Mean Platelet Volume 7.7 fL (7.4-10.4); Platelet Count 201 10x3/uL (130-400); RBC Distribution Width 12.9 % (11.5-14.5); Red Blood Cell (RBC) Count 3.71 mill/uL (4.20-5.40); White Blood Cell (WBC) Count 4.5 10x3/uL (4.8-10.8)
[2022-05-14 09:48] LABS: ALT (SGPT) 8 U/L (8-55); AST (SGOT) 22 U/L (5-34); Albumin 3.5 g/dL (3.4-4.8); Alkaline Phosphatase 29 U/L (40-110); Anion Gap 12 mmol/L (10-20); BUN (Urea Nitrogen) 22 mg/dL (9.8-20.1); Bilirubin, Total 0.4 mg/dL (0.2-1.2); CK (CPK) 43 U/L (29-168); Calc. Creatinine Clearance 0 mL/min (70-130); Calcium 9.7 mg/dL (7.8-10.44); Carbon Dioxide 25 mmol/L (23-31); Chloride 104 mmol/L (98-107); Estimated GFR 59; Globulin 2.9 g/dL (2.4-3.5); Glucose 92 mg/dL (83-110); Lipase 28 U/L (8-78); Potassium 3.9 mmol/L (3.5-5.1); Protein, Total 6.4 g/dL (5.8-8.1); Sodium 137 mmol/L (136-145)
[2022-05-14 10:16] LABS: Bilirubin Negative (Negative); Blood, Urine Negative (Negative); Clarity Clear (Clear); Glucose, Urine (Dipstick) Normal (Negative); Ketone, Urine Negative (Negative); Leukocyte Negative Leu/uL (Negative); Nitrite Negative (Negative); Protein, Urine (Dipstick) Negative (Neg-Trace); Specific Gravity, Urine 1.008 (1.002-1.036); Urobilinogen Normal mg/dL (Less than 2)
== END 2022-05-14 11:24 | disposition home or self-care (01) ==
LOC: ERS 08:23
DX: I10 Essential (primary) hypertension (principal); I25.10 Atherosclerotic heart disease of native coronary artery without angina pectoris; E78.5 Hyperlipidemia, unspecified; Z87.891 Personal history of nicotine dependence
CPT/HCPCS: 36415; 71045; 80053; 81003; 82550; 83690; 84443; 84484; 85025; 93005

== ENCOUNTER 2022-09-08 10:23 | Emergency (ER) | payer MEDICARE ==
[2022-09-08] MEDS ORDERED: Metoclopramide HCl 10 MG/2 ML VIAL ONE (11:28)
[2022-09-08] MEDS ORDERED: diphenhydrAMINE 50 MG/ML VIAL ONE (11:28)
[2022-09-08] MEDS ORDERED: Hydrocortisone Sod Succ/PF 100 mg/2 ml Vial ONE (11:28)
[2022-09-08 12:38] LABS: Bacteria/HPF None Seen HPF (None Seen); Bilirubin Negative (Negative); Blood, Urine Trace (Negative); Clarity Clear (Clear); Glucose, Urine (Dipstick) Normal (Negative); Ketone, Urine Negative (Negative); Leukocyte Negative Leu/uL (Negative); Nitrite Negative (Negative); Protein, Urine (Dipstick) Negative (Neg-Trace); RBC/HPF 0-3 HPF (0-3); Specific Gravity, Urine 1.021 (1.002-1.036); Squamous Epithelial 0-3 HPF (0-3); Urobilinogen Normal mg/dL (Less than 2); WBC/HPF 0-3 HPF (0-3)
[2022-09-08 12:50] LABS: #Lymphocytes 0.2 thou/uL (1.20-3.40); #Monocytes 0.2 thou/uL (0.11-0.59); #Neutrophils 6.9 thou/uL (1.40-6.50); %Basophils 0.6 % (0.0-1.0); %Eosinophils 0.5 % (0.0-10.0); %Lymphocytes 3.1 % (21.0-51.0); %Monocytes 2.6 % (0.0-10.0); %Neutrophils 93.2 % (42.0-75.0); ALT (SGPT) 12 U/L (8-55); AST (SGOT) 23 U/L (5-34); Albumin 3.8 g/dL (3.4-4.8); Alkaline Phosphatase 30 U/L (40-110); Anion Gap 15 mmol/L (10-20); BUN (Urea Nitrogen) 26 mg/dL (9.8-20.1); Bilirubin, Total 0.5 mg/dL (0.2-1.2); Calc. Creatinine Clearance 0 mL/min (70-130); Calcium 9.7 mg/dL (7.8-10.44); Carbon Dioxide 26 mmol/L (23-31); Chloride 99 mmol/L (98-107); Estimated GFR 49; Glucose 87 mg/dL (83-110); Hemoglobin 12.7 g/dL (12.0-16.0); Lipase 14 U/L (8-78); Mean Corpuscular HGB CONC 32.5 g/dL (32.0-36.0); Mean Corpuscular Hemoglobin 30.9 pg (27.0-31.0); Mean Corpuscular Volume 95.3 fl (78.0-98.0); Mean Platelet Volume 8.2 fL (7.4-10.4); Platelet Count 165 10x3/uL (130-400); Potassium 4.2 mmol/L (3.5-5.1); Protein, Total 6.8 g/dL (5.8-8.1); RBC Distribution Width 14.5 % (11.5-14.5); Sodium 136 mmol/L (136-145); White Blood Cell (WBC) Count 7.4 10x3/uL (4.8-10.8)
[2022-09-08 12:51] LABS: Magnesium 1.9 mg/dL (1.6-2.6)
== END 2022-09-08 13:35 | disposition home or self-care (01) ==
LOC: ERS 10:23
DX: R51.9 Headache, unspecified (principal); R07.9 Chest pain, unspecified; E78.5 Hyperlipidemia, unspecified; I25.10 Atherosclerotic heart disease of native coronary artery without angina pectoris; I10 Essential (primary) hypertension; Z87.891 Personal history of nicotine dependence
CPT/HCPCS: 70450; 71045; 80053; 81003; 81015; 83690; 83735; 83880; 84484; 85025; 93005; 96365; 96375; J1200; J1720; J2765

== ENCOUNTER 2022-09-14 09:01 | Emergency (ER) | payer MEDICARE ==
[2022-09-14 09:37] LABS: #Eosinphils 0.2 thou/uL (0.0-0.7); #Lymphocytes 1.5 thou/uL (1.20-3.40); #Monocytes 0.6 thou/uL (0.11-0.59); #Neutrophils 2.7 thou/uL (1.40-6.50); %Basophils 0.6 % (0.0-1.0); %Eosinophils 3.7 % (0.0-10.0); %Monocytes 12.3 % (0.0-10.0); %Neutrophils 52.7 % (42.0-75.0); Hemoglobin 10.1 g/dL (12.0-16.0); Mean Corpuscular HGB CONC 31.2 g/dL (32.0-36.0); Mean Corpuscular Hemoglobin 28.8 pg (27.0-31.0); Mean Corpuscular Volume 92.3 fl (78.0-98.0); Platelet Count 222 10x3/uL (130-400); RBC Distribution Width 15.2 % (11.5-14.5); Red Blood Cell (RBC) Count 3.51 mill/uL (4.20-5.40); White Blood Cell (WBC) Count 5.1 10x3/uL (4.8-10.8)
[2022-09-14] MEDS ORDERED: Iopamidol 370 76% 100 ML VIAL ONE (09:44)
[2022-09-14] MEDS ORDERED: diphenhydrAMINE 50 MG/ML VIAL ONE (09:50)
[2022-09-14] MEDS ORDERED: Famotidine/PF 20 mg/2ml Vial ONE (09:50)
[2022-09-14] MEDS ORDERED: methylPREDNISolone Sod Succ/PF 125 MG/2 ML VIAL ONE (09:50)
[2022-09-14 09:53] LABS: ALT (SGPT) 13 U/L (8-55); AST (SGOT) 14 U/L (5-34); Albumin 2.8 g/dL (3.4-4.8); Alkaline Phosphatase 24 U/L (40-110); Anion Gap 8 mmol/L (10-20); BUN (Urea Nitrogen) 16 mg/dL (9.8-20.1); Bilirubin, Total 0.3 mg/dL (0.2-1.2); Calc. Creatinine Clearance 0 mL/min (70-130); Calcium 8.6 mg/dL (7.8-10.44); Carbon Dioxide 29 mmol/L (23-31); Chloride 105 mmol/L (98-107); Estimated GFR 64; Globulin 2.1 g/dL (2.4-3.5); Glucose 115 mg/dL (83-110); Potassium 3.5 mmol/L (3.5-5.1); Protein, Total 4.9 g/dL (5.8-8.1); Sodium 138 mmol/L (136-145)
[2022-09-14 10:16] LABS: CKMB 1.1 ng/mL (0-6.6)
[2022-09-14 10:57] LABS: Mean Platelet Volume 9.8 fL (7.4-10.4)
[2022-09-14 11:07] LABS: %Lymphocytes 30.7 % (21.0-51.0)
[2022-09-14 11:49] LABS: Bilirubin Negative (Negative); Blood, Urine Negative (Negative); Clarity Clear (Clear); Glucose, Urine (Dipstick) Normal (Negative); Ketone, Urine Negative (Negative); Leukocyte Negative Leu/uL (Negative); Nitrite Negative (Negative); Protein, Urine (Dipstick) Negative (Neg-Trace); Specific Gravity, Urine 1.024 (1.002-1.036); Urobilinogen Normal mg/dL (Less than 2)
== END 2022-09-14 12:32 | disposition home or self-care (01) ==
LOC: ERS 09:01
DX: R55 Syncope and collapse (principal); I25.10 Atherosclerotic heart disease of native coronary artery without angina pectoris; E78.5 Hyperlipidemia, unspecified; I10 Essential (primary) hypertension; Z87.891 Personal history of nicotine dependence; Z79.82 Long term (current) use of aspirin
CPT/HCPCS: 36415; 71275; 80053; 81003; 82553; 83605; 84484; 85025; 93005; 96374; 96375; J1200; J2930; Q9967; S0028

== ENCOUNTER 2023-01-27 10:08 | Emergency (ER) | payer MEDICARE ==
[2023-01-27 11:43] LABS: #Basophils 0.1 thou/uL (0.0-0.2); #Eosinphils 0.3 thou/uL (0.0-0.7); #Neutrophils 3.5 thou/uL (1.40-6.50); %Basophils 0.8 % (0.0-1.0); %Lymphocytes 26.9 % (21.0-51.0); %Monocytes 14.6 % (0.0-10.0); %Neutrophils 53.5 % (42.0-75.0); Hematocrit 34.8 % (36.0-47.0); Hemoglobin 10.8 g/dL (12.0-16.0); Mean Corpuscular Hemoglobin 30.7 pg (27.0-31.0); Mean Corpuscular Volume 98.9 fl (78.0-98.0); Mean Platelet Volume 9.8 fL (7.4-10.4); Platelet Count 261 10x3/uL (130-400); RBC Distribution Width 15.8 % (11.5-14.5); Red Blood Cell (RBC) Count 3.52 mill/uL (4.20-5.40); White Blood Cell (WBC) Count 6.5 10x3/uL (4.8-10.8)
[2023-01-27 12:11] LABS: Albumin 3.6 g/dL (3.4-4.8); Anion Gap 10 mmol/L (10-20); BUN (Urea Nitrogen) 28 mg/dL (9.8-20.1); Bilirubin, Total 0.3 mg/dL (0.2-1.2); Calc. Creatinine Clearance 0 mL/min (70-130); Calcium 9.8 mg/dL (7.8-10.44); Carbon Dioxide 30 mmol/L (23-31); Chloride 102 mmol/L (98-107); Estimated GFR 44; Glucose 85 mg/dL (83-110); Potassium 4.2 mmol/L (3.5-5.1); Protein, Total 5.9 g/dL (5.8-8.1); Sodium 138 mmol/L (136-145)
[2023-01-27 12:12] LABS: ALT (SGPT) 8 U/L (8-55); AST (SGOT) 17 U/L (5-34); Alkaline Phosphatase 40 U/L (40-110); Globulin 2.3 g/dL (2.4-3.5); Lipase 36 U/L (8-78); Magnesium 2.1 mg/dL (1.6-2.6)
[2023-01-27 12:15] LABS: Troponin I Less than 0.010 ng/mL (< 0.028)
[2023-01-27] MEDS ORDERED: HYDROcodone/Acetaminophen 10/325 mg Tablet ONE (14:55)
== END 2023-01-27 17:00 | disposition short-term general hospital (02) ==
LOC: ERS 10:08
DX: R07.2 Precordial pain (principal); I10 Essential (primary) hypertension; I25.10 Atherosclerotic heart disease of native coronary artery without angina pectoris; M06.9 Rheumatoid arthritis, unspecified; E78.5 Hyperlipidemia, unspecified; I73.9 Peripheral vascular disease, unspecified; Z87.891 Personal history of nicotine dependence; Z79.82 Long term (current) use of aspirin; Z79.899 Other long term (current) drug therapy; Z95.5 Presence of coronary angioplasty implant and graft
CPT/HCPCS: 36415; 71045; 80053; 83690; 83735; 83880; 84484; 85025; 93005

== ENCOUNTER 2023-03-15 07:30 | Outpatient (CLI) | payer MEDICARE | END 2023-03-15 07:31 | disposition home or self-care (01) | LOC: BICMRI 07:30 | PROVIDERS: ATTEND Nurse Practitioner Family | DX: M48.02 Spinal stenosis, cervical region (principal); M47.812 Spondylosis without myelopathy or radiculopathy, cervical region; M50.323 Other cervical disc degeneration at C6-C7 level; M25.78 Osteophyte, vertebrae; M50.31 Other cervical disc degeneration, high cervical region; M89.38 Hypertrophy of bone, other site; Z98.1 Arthrodesis status | CPT/HCPCS: 72052; 72141 ==

== ENCOUNTER 2023-10-05 20:07 | Observation (INO) | payer MEDICARE ==
[2023-10-05 21:05] LABS: #Basophils 0.04 10x3/uL (0.0-0.2); %Basophils 0.6 % (0.0-1.0); %Eosinophils 8.5 % (0.0-10.0); %Lymphocytes 26.6 % (21.0-51.0); %Monocytes 12.7 % (0.0-10.0); %Neutrophils 51.3 % (42.0-75.0); Hematocrit 35.5 % (36.0-47.0); Hemoglobin 11.1 g/dL (12.0-16.0); Mean Corpuscular HGB CONC 31.3 g/dL (32.0-36.0); Mean Corpuscular Hemoglobin 29.6 pg (27.0-31.0); Mean Corpuscular Volume 94.7 fL (78.0-98.0); Mean Platelet Volume 9.9 fL (7.4-10.4); Platelet Count 266 10x3/uL (130-400); RBC Distribution Width 15.7 % (11.5-14.5); Red Blood Cell (RBC) Count 3.75 mill/uL (4.20-5.40)
[2023-10-05 21:20] LABS: ALT (SGPT) 10 U/L (8-55); AST (SGOT) 19 U/L (5-34); Albumin 3.2 g/dL (3.4-4.8); Alkaline Phosphatase 39 U/L (40-110); Anion Gap 12 mmol/L (10-20); BUN (Urea Nitrogen) 21 mg/dL (9.8-20.1); Bilirubin, Total 0.2 mg/dL (0.2-1.2); Calc. Creatinine Clearance 0 mL/min (70-130); Calcium 9.6 mg/dL (7.8-10.44); Carbon Dioxide 27 mmol/L (23-31); Chloride 105 mmol/L (98-107); Estimated GFR 59; Globulin 2.9 g/dL (2.4-3.5); Glucose 94 mg/dL (83-110); Lipase 31 U/L (8-78); Potassium 4.2 mmol/L (3.5-5.1); Protein, Total 6.1 g/dL (5.8-8.1); Sodium 140 mmol/L (136-145)
[2023-10-05 21:25] LABS: Troponin I Less than 0.010 ng/mL (< 0.028)
[2023-10-05] MEDS ORDERED: Enoxaparin 60 MG (0.6 mL) SYRINGE ONE (21:44)
[2023-10-05 23:52] VITALS: BMI 22.5
[2023-10-06] MEDS ORDERED: Ondansetron ODT 4 MG TAB PO PRN (00:35)
[2023-10-06] MEDS ORDERED: Ondansetron PF 4 MG/2 ML Vial IVP PRN (00:35)
[2023-10-06] MEDS ORDERED: HYDROcodone/Acetaminophen 10/325 mg Tablet PO PRN (00:42)
[2023-10-06] MEDS ORDERED: Diazepam 2 MG TAB PO PRN (00:42)
[2023-10-06] MEDS ORDERED: Nitroglycerin 0.4 MG TAB (25 Tab Bottle) SL PRN (00:42)
[2023-10-06] MEDS ORDERED: cloNIDine 0.1 MG TAB PO PRN (00:42)
[2023-10-06] MEDS: Acetaminophen 325 MG TAB PO PRN (00:45)
[2023-10-06 01:18] LABS: Troponin I Less than 0.010 ng/mL (< 0.028)
[2023-10-06 03:07] LABS: #Basophils Less than 0.03 10x3/uL (0.0-0.2); %Basophils 0.3 % (0.0-1.0); %Eosinophils 7.5 % (0.0-10.0); %Lymphocytes 29.5 % (21.0-51.0); %Monocytes 11.4 % (0.0-10.0); Hemoglobin 10.8 g/dL (12.0-16.0); Mean Corpuscular HGB CONC 30.9 g/dL (32.0-36.0); Mean Corpuscular Hemoglobin 30.6 pg (27.0-31.0); Mean Corpuscular Volume 99.2 fL (78.0-98.0); Mean Platelet Volume 10.7 fL (7.4-10.4); Platelet Count 229 10x3/uL (130-400); Red Blood Cell (RBC) Count 3.53 mill/uL (4.20-5.40)
[2023-10-06 03:29] LABS: Troponin I Less than 0.010 ng/mL (< 0.028)
[2023-10-06 05:15] LABS: Anion Gap 14 mmol/L (10-20); BUN (Urea Nitrogen) 17 mg/dL (9.8-20.1); Calc. Creatinine Clearance 40 mL/min (70-130); Calcium 9.9 mg/dL (7.8-10.44); Carbon Dioxide 26 mmol/L (23-31); Chloride 107 mmol/L (98-107); Estimated GFR 68; Glucose 76 mg/dL (83-110); Potassium 3.7 mmol/L (3.5-5.1); Sodium 143 mmol/L (136-145)
[2023-10-06 08:44] VITALS: BP 162/71; TEMP 97.6
[2023-10-06] MEDS: Famotidine 20 MG TAB PO SCH (08:58)
[2023-10-06] MEDS: Potassium Chloride 8 MEQ TAB PO SCH (08:58)
[2023-10-06] MEDS: Aspirin 81 mg Enteric Coated Tablet PO SCH (08:58)
[2023-10-06] MEDS: Fish Oil 1,000 MG CAP PO SCH (08:58)
[2023-10-06] MEDS: Fenofibrate Nanocrystallized 145 MG TAB PO SCH (08:58)
[2023-10-06] MEDS: Famotidine/PF 20 mg/2ml Vial SLOW IVP SCH (08:58)
[2023-10-06] MEDS: Magnesium Oxide 250 MG TAB PO SCH (08:58)
[2023-10-06] MEDS: Amlodipine 10 MG TAB PO SCH (08:58)
[2023-10-06] MEDS: Cholecalciferol 1,000 UNITS (25 MCG) TAB PO SCH (08:58)
[2023-10-06] MEDS ORDERED: Rosuvastatin 10 MG TAB PO SCH (21:00)
== END 2023-10-06 11:43 | disposition home or self-care (01) ==
LOC: ERS 20:07 → 2SW 21:59
PROVIDERS: ADMIT Student in an Organized Health Care Education/Training Program; ATTEND Emergency Medicine
DX: R07.89 Other chest pain (principal); I25.10 Atherosclerotic heart disease of native coronary artery without angina pectoris; E78.5 Hyperlipidemia, unspecified; L40.8 Other psoriasis; I10 Essential (primary) hypertension; I73.9 Peripheral vascular disease, unspecified; Z87.59 Personal history of other complications of pregnancy, childbirth and the puerperium; Z90.710 Acquired absence of both cervix and uterus; Z95.5 Presence of coronary angioplasty implant and graft; Z91.048 Other nonmedicinal substance allergy status; Z88.1 Allergy status to other antibiotic agents; Z91.041 Radiographic dye allergy status; Z91.013 Allergy to seafood; Z88.7 Allergy status to serum and vaccine; Z79.82 Long term (current) use of aspirin; Z79.899 Other long term (current) drug therapy
CPT/HCPCS: 36415; 71045; 80048; 80053; 83690; 83880; 84484; 85025; 93005; 96372; G0378; J1650

== ENCOUNTER 2024-04-23 13:42 | Emergency (ER) | payer MEDICARE ==
[2024-04-23 16:19] LABS: ALT (SGPT) 12 U/L (8-55); AST (SGOT) 21 U/L (5-34); Albumin 4.1 g/dL (3.4-4.8); Alkaline Phosphatase 41 U/L (40-110); Anion Gap 16 mmol/L (10-20); BUN (Urea Nitrogen) 16 mg/dL (9.8-20.1); Bilirubin, Total 0.4 mg/dL (0.2-1.2); Calc. Creatinine Clearance 0 mL/min (70-130); Calcium 9.8 mg/dL (7.8-10.44); Carbon Dioxide 23 mmol/L (23-31); Chloride 105 mmol/L (98-107); Estimated GFR 64; Globulin 3.3 g/dL (2.4-3.5); Glucose 80 mg/dL (83-110); Lipase 29 U/L (8-78); Potassium 3.6 mmol/L (3.5-5.1); Protein, Total 7.4 g/dL (5.8-8.1); Sodium 140 mmol/L (136-145)
[2024-04-23 16:27] LABS: Troponin I Less than 0.010 ng/mL (< 0.028)
== END 2024-04-23 16:01 | disposition home or self-care (01) ==
LOC: ERS 13:42
DX: R55 Syncope and collapse (principal); I10 Essential (primary) hypertension; I25.10 Atherosclerotic heart disease of native coronary artery without angina pectoris; Z79.82 Long term (current) use of aspirin; Z87.891 Personal history of nicotine dependence; Z79.899 Other long term (current) drug therapy
CPT/HCPCS: 36415; 71045; 80053; 83690; 83880; 84484; 93005

== ENCOUNTER 2024-05-13 07:39 | Emergency (ER) | payer MEDICARE ==
[2024-05-13 08:26] LABS: #Basophils 0.03 10x3/uL (0.0-0.2); %Basophils 0.6 % (0.0-1.0); %Eosinophils 10.7 % (0.0-10.0); %Lymphocytes 35.1 % (21.0-51.0); %Monocytes 12.5 % (0.0-10.0); %Neutrophils 40.9 % (42.0-75.0); Hematocrit 38.2 % (36.0-47.0); Hemoglobin 11.8 g/dL (12.0-16.0); Mean Corpuscular HGB CONC 30.9 g/dL (32.0-36.0); Mean Corpuscular Hemoglobin 29.7 pg (27.0-31.0); Mean Corpuscular Volume 96.2 fL (78.0-98.0); Mean Platelet Volume 9.1 fL (7.4-10.4); Platelet Count 212 10x3/uL (130-400); RBC Distribution Width 14.4 % (11.5-14.5); Red Blood Cell (RBC) Count 3.97 mill/uL (4.20-5.40)
[2024-05-13 08:42] LABS: ALT (SGPT) 10 U/L (8-55); AST (SGOT) 19 U/L (5-34); Albumin 3.7 g/dL (3.4-4.8); Alkaline Phosphatase 47 U/L (40-110); Anion Gap 9 mmol/L (10-20); BUN (Urea Nitrogen) 16 mg/dL (9.8-20.1); Bilirubin, Total 0.4 mg/dL (0.2-1.2); Calc. Creatinine Clearance 0 mL/min (70-130); Calcium 10.1 mg/dL (7.8-10.44); Carbon Dioxide 31 mmol/L (23-31); Chloride 103 mmol/L (98-107); Estimated GFR 66; Globulin 3.3 g/dL (2.4-3.5); Glucose 91 mg/dL (83-110); Magnesium 2.2 mg/dL (1.6-2.6); Potassium 3.7 mmol/L (3.5-5.1); Sodium 139 mmol/L (136-145)
== END 2024-05-13 09:40 | disposition home or self-care (01) ==
LOC: ERS 07:39
DX: M62.838 Other muscle spasm (principal); I25.10 Atherosclerotic heart disease of native coronary artery without angina pectoris; I10 Essential (primary) hypertension; Z87.891 Personal history of nicotine dependence; Z79.82 Long term (current) use of aspirin; Z79.899 Other long term (current) drug therapy
CPT/HCPCS: 36415; 80053; 83735; 85025; 99283

== ENCOUNTER 2024-06-19 05:59 | Emergency (ER) | payer MEDICARE ==
[2024-06-19 07:07] LABS: Bacteria/HPF None Seen HPF (None Seen); Bilirubin Negative (Negative); Blood, Urine Negative (Negative); CAUTI Indications for Culture Alt mental st,lethar; Clarity Clear (Clear); Glucose, Urine (Dipstick) Normal (Negative); Ketone, Urine Negative (Negative); Leukocyte Negative Leu/uL (Negative); Nitrite Negative (Negative); Protein, Urine (Dipstick) Negative (Neg-Trace); RBC/HPF 0-3 HPF (0-3); Specific Gravity, Urine 1.008 (1.002-1.036); Squamous Epithelial 0-3 HPF (0-3); Urobilinogen Normal mg/dL (Less than 2); WBC/HPF 0-3 HPF (0-3)
[2024-06-19 07:10] LABS: #Basophils 0.03 10x3/uL (0.0-0.2); %Basophils 0.6 % (0.0-1.0); %Eosinophils 6.2 % (0.0-10.0); %Lymphocytes 35.7 % (21.0-51.0); %Monocytes 12.4 % (0.0-10.0); %Neutrophils 44.9 % (42.0-75.0); Hemoglobin 12.3 g/dL (12.0-16.0); Mean Corpuscular HGB CONC 31.5 g/dL (32.0-36.0); Mean Corpuscular Hemoglobin 28.9 pg (27.0-31.0); Mean Corpuscular Volume 91.5 fL (78.0-98.0); Mean Platelet Volume 9.3 fL (7.4-10.4); Platelet Count 257 10x3/uL (130-400); RBC Distribution Width 14.5 % (11.5-14.5); Red Blood Cell (RBC) Count 4.26 mill/uL (4.20-5.40)
[2024-06-19] MEDS ORDERED: Ketorolac Tromethamine 30 MG (1 mL) VIAL ONE (07:16)
[2024-06-19 07:29] LABS: Urine Culture Reflex No No
[2024-06-19 07:41] LABS: Troponin I 0.013 ng/mL (< 0.028)
[2024-06-19 07:44] LABS: ALT (SGPT) 10 U/L (Less than 34); AST (SGOT) 21 U/L (11-34); Albumin 3.8 g/dL (3.1-4.5); Alkaline Phosphatase 47 U/L (40-110); Anion Gap 13 mmol/L (10-20); BUN (Urea Nitrogen) 17 mg/dL (9.8-20.1); Bilirubin, Total 0.5 mg/dL (0.3-1.2); Calc. Creatinine Clearance 0 mL/min (70-130); Carbon Dioxide 28 mmol/L (23-31); Chloride 105 mmol/L (98-107); Estimated GFR 58; Globulin 3.2 g/dL (2.4-3.5); Glucose 101 mg/dL (83-110); Potassium 3.8 mmol/L (3.5-5.1); Sodium 142 mmol/L (136-145)
== END 2024-06-19 08:28 | disposition home or self-care (01) ==
LOC: ERS 05:59
DX: I10 Essential (primary) hypertension (principal); M54.14 Radiculopathy, thoracic region; G89.29 Other chronic pain; M54.2 Cervicalgia; I16.0 Hypertensive urgency; E78.5 Hyperlipidemia, unspecified; I25.10 Atherosclerotic heart disease of native coronary artery without angina pectoris; Z87.891 Personal history of nicotine dependence; Z79.899 Other long term (current) drug therapy
CPT/HCPCS: 36415; 80053; 81001; 84484; 85025; 93005; J1885

== ENCOUNTER 2024-06-19 22:51 | Emergency (ER) | payer MEDICARE ==
[2024-06-20 00:12] LABS: Lipase 23 U/L (8-78)
[2024-06-20 00:15] LABS: ALT (SGPT) 10 U/L (Less than 34); AST (SGOT) 26 U/L (11-34); Acetaminophen Less than 10 mcg/mL (Less than 10); Albumin 3.8 g/dL (3.1-4.5); Alcohol Less than 10.0 mg/dL (Less than 10); Alkaline Phosphatase 47 U/L (40-110); Anion Gap 17 mmol/L (10-20); BUN (Urea Nitrogen) 20 mg/dL (9.8-20.1); Bilirubin, Total 0.4 mg/dL (0.3-1.2); CK (CPK) 65 U/L (29-168); Calc. Creatinine Clearance 0 mL/min (70-130); Calcium 9.9 mg/dL (7.8-10.44); Carbon Dioxide 23 mmol/L (23-31); Chloride 104 mmol/L (98-107); Estimated GFR 56; Globulin 3.3 g/dL (2.4-3.5); Glucose 90 mg/dL (83-110); Potassium 3.6 mmol/L (3.5-5.1); Protein, Total 7.1 g/dL (5.8-8.1); Salicylate Less than 8.0 mg/dL (Less than 8.0); Sodium 140 mmol/L (136-145)
[2024-06-20 00:29] LABS: #Basophils 0.04 10x3/uL (0.0-0.2); %Basophils 0.5 % (0.0-1.0); %Eosinophils 2.1 % (0.0-10.0); %Lymphocytes 23.9 % (21.0-51.0); %Monocytes 10.9 % (0.0-10.0); %Neutrophils 62.4 % (42.0-75.0); Hematocrit 37.1 % (36.0-47.0); Hemoglobin 12.1 g/dL (12.0-16.0); Mean Corpuscular HGB CONC 32.6 g/dL (32.0-36.0); Mean Corpuscular Hemoglobin 29.9 pg (27.0-31.0); Mean Corpuscular Volume 91.6 fL (78.0-98.0); Mean Platelet Volume 9.9 fL (7.4-10.4); Platelet Count 266 10x3/uL (130-400); RBC Distribution Width 14.3 % (11.5-14.5); Red Blood Cell (RBC) Count 4.05 mill/uL (4.20-5.40); Troponin I 0.026 ng/mL (< 0.028)
[2024-06-20 00:42] LABS: Bacteria/HPF None Seen HPF (None Seen); Bilirubin Negative (Negative); Blood, Urine Negative (Negative); CAUTI Indications for Culture Dysuria,urgency,freq; Clarity Clear (Clear); Glucose, Urine (Dipstick) Normal (Negative); Ketone, Urine Negative (Negative); Leukocyte Negative Leu/uL (Negative); Nitrite Negative (Negative); Protein, Urine (Dipstick) Negative (Neg-Trace); Specific Gravity, Urine 1.008 (1.002-1.036); Squamous Epithelial None Seen HPF (0-3); Urobilinogen Normal mg/dL (Less than 2); WBC/HPF 0-3 HPF (0-3); pH, Urine 6.5 (5.0-9.0)
[2024-06-20 00:43] LABS: Amphetamine Not Detected (NotDetected); Barbiturates Screen Not Detected (NotDetected); Benzodiazepine Screen Not Detected (NotDetected); Cocaine Metabolite Screen Not Detected (NotDetected); Methadone Not Detected (NotDetected); Methamphetamine Not Detected (NotDetected); Opiate Screen Detected (NotDetected); Oxycodone Screen Not Detected (NotDetected); Phencyclidine (PCP) Not Detected (NotDetected); THC/Cannabinoid Screen Not Detected (NotDetected); Tricyclic Screen Not Detected (NotDetected)
[2024-06-20 00:48] LABS: RBC/HPF 0-3 HPF (0-3); Urine Culture Reflex No No
== END 2024-06-20 01:05 | disposition home or self-care (01) ==
LOC: ERS 22:51
DX: I10 Essential (primary) hypertension (principal); I25.10 Atherosclerotic heart disease of native coronary artery without angina pectoris; Z87.891 Personal history of nicotine dependence
CPT/HCPCS: 71045; 80053 ×2; 80306; 80307; 81001; 82140; 82550; 83690; 84484 ×2; 85025 ×2; 85379; 87040; 87428; 93005 ×2; J1885; 36415; 96374

== ENCOUNTER 2024-12-08 13:58 | Emergency (ER) | payer MEDICARE, OTHER ==
[2024-12-08 16:25] LABS: #Basophils 0.04 10x3/uL (0.0-0.2); #Eosinophils 0.24 10x3/uL (0.0-0.7); #Monocytes 0.84 10x3/uL (0.11-0.59); #Neutrophils 3.94 10x3/uL (1.40-6.50); %Basophils 0.6 % (0.0-1.0); %Eosinophils 3.4 % (0.0-10.0); %Lymphocytes 28.3 % (21.0-51.0); %Monocytes 11.9 % (0.0-10.0); %Neutrophils 55.7 % (42.0-75.0); Hematocrit 38.9 % (36.0-47.0); Hemoglobin 12.3 g/dL (12.0-16.0); Mean Corpuscular Hemoglobin 30.2 pg (27.0-31.0); Mean Corpuscular Volume 95.6 fL (78.0-98.0); Platelet Count 314 10x3/uL (130-400); Red Blood Cell (RBC) Count 4.07 mill/uL (4.20-5.40); White Blood Cell (WBC) Count 7.07 10x3/uL (4.8-10.8)
[2024-12-08 16:42] LABS: Lipase 22 U/L (8-78)
[2024-12-08 16:44] LABS: ALT (SGPT) 10 U/L (Less than 34); AST (SGOT) 17 U/L (11-34); Acetaminophen Less than 10 mcg/mL (Less than 10); Albumin 3.7 g/dL (3.1-4.5); Alkaline Phosphatase 49 U/L (40-110); Anion Gap 16 mmol/L (10-20); BUN (Urea Nitrogen) 19 mg/dL (9.8-20.1); Bilirubin, Total 0.2 mg/dL (0.3-1.2); Calc. Creatinine Clearance 0 mL/min (70-130); Calcium 9.6 mg/dL (7.8-10.44); Carbon Dioxide 30 mmol/L (23-31); Chloride 99 mmol/L (98-107); Globulin 3.2 g/dL (2.4-3.5); Glucose 114 mg/dL (83-110); Potassium 4.3 mmol/L (3.5-5.1); Salicylate Less than 8.0 mg/dL (Less than 8.0); Sodium 141 mmol/L (136-145)
[2024-12-08 17:05] LABS: Free T4 (Free Thyroxine) 0.82 ng/dL (0.70-1.48); Thyroid Stimulating Hormone 0.9704 uIU/mL (0.35-4.94)
[2024-12-08 17:13] LABS: Cocaine Metabolite Screen Negative (Negative); THC/Cannabinoid Screen Negative (Negative); Tricyclic Screen Negative (Negative)
[2024-12-08 17:19] LABS: Bacteria/HPF None Seen HPF (None Seen); CAUTI Indications for Culture Alt mental st,lethar; Glucose, Urine (Dipstick) Normal (Negative); Leukocyte Negative Leu/uL (Negative); Protein, Urine (Dipstick) Negative (Neg-Trace); RBC/HPF 0-3 HPF (0-3); Specific Gravity, Urine 1.022 (1.002-1.036); WBC/HPF 0-3 HPF (0-3)
[2024-12-08 17:22] LABS: Urine Culture Reflex No No
== END 2024-12-08 19:11 | disposition home or self-care (01) ==
LOC: ERS 13:58
DX: R40.4 Transient alteration of awareness (principal); R41.0 Disorientation, unspecified; I25.10 Atherosclerotic heart disease of native coronary artery without angina pectoris; I10 Essential (primary) hypertension; Z87.891 Personal history of nicotine dependence; Z79.82 Long term (current) use of aspirin; Z79.899 Other long term (current) drug therapy
CPT/HCPCS: 70450; 71045; 80306; 80307 ×2; 81001; 82140; 83690; 84439; 93005; J1630; 80053; 84443; 85025; 96374

== ENCOUNTER 2024-12-14 13:41 | Inpatient (IN) | payer MEDICARE, OTHER ==
[2024-12-14 14:44] LABS: #Basophils 0.05 10x3/uL (0.0-0.2); #Eosinophils 0.27 10x3/uL (0.0-0.7); #Monocytes 0.91 10x3/uL (0.11-0.59); #Neutrophils 4.62 10x3/uL (1.40-6.50); %Basophils 0.6 % (0.0-1.0); %Eosinophils 3.4 % (0.0-10.0); %Lymphocytes 25.4 % (21.0-51.0); %Monocytes 11.6 % (0.0-10.0); %Neutrophils 58.7 % (42.0-75.0); Hematocrit 41.6 % (36.0-47.0); Hemoglobin 12.9 g/dL (12.0-16.0); Mean Corpuscular Hemoglobin 29.7 pg (27.0-31.0); Mean Corpuscular Volume 95.6 fL (78.0-98.0); Platelet Count 318 10x3/uL (130-400); Red Blood Cell (RBC) Count 4.35 mill/uL (4.20-5.40); White Blood Cell (WBC) Count 7.87 10x3/uL (4.8-10.8)
[2024-12-14 15:00] LABS: ALT (SGPT) 10 U/L (Less than 34); AST (SGOT) 23 U/L (11-34); Albumin 4.0 g/dL (3.1-4.5); Alkaline Phosphatase 51 U/L (40-110); Anion Gap 13 mmol/L (10-20); BUN (Urea Nitrogen) 19 mg/dL (9.8-20.1); Bilirubin, Total 0.3 mg/dL (0.3-1.2); Calc. Creatinine Clearance 0 mL/min (70-130); Calcium 9.5 mg/dL (7.8-10.44); Carbon Dioxide 31 mmol/L (23-31); Chloride 100 mmol/L (98-107); Globulin 3.4 g/dL (2.4-3.5); Glucose 96 mg/dL (83-110); Magnesium 2.0 mg/dL (1.6-2.6); Potassium 4.3 mmol/L (3.5-5.1); Sodium 140 mmol/L (136-145)
[2024-12-14 15:02] LABS: Acetaminophen Less than 10 mcg/mL (Less than 10); Salicylate Less than 8.0 mg/dL (Less than 8.0)
[2024-12-14 15:03] LABS: Troponin I Less than 0.010 ng/mL (< 0.028)
[2024-12-14 15:44] LABS: Bacteria/HPF None Seen HPF (None Seen); CAUTI Indications for Culture Alt mental st,lethar; Cocaine Metabolite Screen Negative (Negative); Glucose, Urine (Dipstick) Normal (Negative); Leukocyte Negative Leu/uL (Negative); Protein, Urine (Dipstick) 10 mg/dL (Neg-Trace); RBC/HPF 0-3 HPF (0-3); Specific Gravity, Urine 1.031 (1.002-1.036); THC/Cannabinoid Screen Negative (Negative); Tricyclic Screen PRELIM POSITIVE (Negative); WBC/HPF 0-3 HPF (0-3)
[2024-12-14 15:48] LABS: Urine Culture Reflex No No
[2024-12-14] MEDS ORDERED: Guaifenesin DM 100-10/5 ML UDCUP PO PRN (17:04)
[2024-12-14] MEDS ORDERED: Electrolyte Replacement Protocol 1 EACH FS SCH (17:15)
[2024-12-14 18:27] LABS: Anion Gap 16 mmol/L (10-20); BUN (Urea Nitrogen) 17 mg/dL (9.8-20.1); Calc. Creatinine Clearance 0 mL/min (70-130); Calcium 9.2 mg/dL (7.8-10.44); Carbon Dioxide 25 mmol/L (23-31); Chloride 101 mmol/L (98-107); Glucose 88 mg/dL (83-110); Potassium 4.3 mmol/L (3.5-5.1); Sodium 138 mmol/L (136-145)
[2024-12-14 21:27] LABS: Magnesium 1.9 mg/dL (1.6-2.6)
[2024-12-14] MEDS: Famotidine 20 MG TAB PO SCH (22:38)
[2024-12-14] MEDS: QUEtiapine 25 MG TAB PO SCH (22:38)
[2024-12-15 00:12] LABS: HIV (1/2) Antibody/Antigen NONREACTIVE (NonReactive); HIV 1/2 INDEX 0.05 S/CO (<1.00)
[2024-12-15] MEDS: HYDROcodone/Acetaminophen 5/325 mg Tablet PO PRN (00:42)
[2024-12-15 05:53] VITALS: BMI 18.8
[2024-12-15] MEDS: Magnesium 2 GM/50 ML(in water) 2 GM in Premix 1 BAG IVPB SCH (06:52)
[2024-12-15] MEDS: PNEUMOC 20-VAL CONJ-DIP CRM/PF 0.5 ML SYRINGE IM ONE (07:55)
[2024-12-15] MEDS ORDERED: Enoxaparin 40 MG (0.4 mL) SYRINGE SC SCH (09:00)
[2024-12-15 10:43] LABS: Syphilis Antibody Index 0.11 S/CO (<1.00 Non-Reactive)
[2024-12-15] MEDS ORDERED: hydrALAZINE 20 MG/ML VIAL SLOW IVP PRN (11:02)
[2024-12-15] MEDS: Metoprolol Succinate XL 100 MG ER.TAB PO SCH (11:47)
[2024-12-15] MEDS: Rosuvastatin 10 MG TAB PO SCH ×2 (11:47→19:45)
[2024-12-15] MEDS: Sertraline 25 MG TAB PO SCH (16:55)
[2024-12-15] MEDS ORDERED: QUEtiapine 25 MG TAB PO SCH (17:15)
[2024-12-15] MEDS ORDERED: cloNIDine 0.1 MG TAB PO PRN (19:14)
[2024-12-15] MEDS: cloNIDine 0.1 MG TAB PO SCH (19:45)
[2024-12-15] MEDS: QUEtiapine 25 MG TAB PO SCH (19:46)
[2024-12-15] MEDS: Acetaminophen 325 MG TAB PO PRN (19:51)
[2024-12-15] MEDS ORDERED: ESZOPICLONE 1 MG PO SCH (21:00)
[2024-12-15] MEDS ORDERED: Non-Formulary Item 1 EACH (Magnesium [Magnesium] 250 MG Tablet) PO SCH (21:00)
[2024-12-16] MEDS ORDERED: Non-Formulary Item 1 EACH (Fenofibrate [Fenofibrate] 160 MG Tablet) PO SCH (09:00)
[2024-12-16] MEDS ORDERED: QUEtiapine 25 MG TAB PO SCH ×3 (09:00)
[2024-12-16] MEDS ORDERED: Potassium Citrate [Potassium] 99 MG Capsule PO SCH (09:00)
[2024-12-16] MEDS ORDERED: Non-Formulary Item 1 EACH (Sertraline Hcl [Sertraline Hcl] 50 MG Tablet) PO SCH (09:00)
[2024-12-16] MEDS ORDERED: Non-Formulary Item 1 EACH (Potassium Citrate [Potassium] 99 MG Capsule) PO SCH (09:00)
[2024-12-16] MEDS ORDERED: Non-Formulary Item 1 EACH (Cholecalciferol (Vitamin D3) [Vitamin D3] 25 MCG Capsule) PO SCH (09:00)
[2024-12-16] MEDS ORDERED: Sertraline 25 MG TAB PO SCH (09:00)
[2024-12-16] MEDS: Cholecalciferol 1,000 UNITS (25 MCG) TAB PO SCH (09:55)
[2024-12-16] MEDS: Famotidine 20 MG TAB PO SCH (09:55)
[2024-12-16] MEDS: Aspirin 81 mg Enteric Coated Tablet PO SCH (09:55)
[2024-12-16] MEDS: Losartan 25 MG TAB PO SCH (09:55)
[2024-12-16] MEDS: Sertraline 25 MG TAB PO SCH (09:55)
[2024-12-16] MEDS ORDERED: cloNIDine 0.1 MG TAB PO PRN (19:14)
[2024-12-16] MEDS ORDERED: cloNIDine 0.1 MG TAB PO SCH (19:15)
[2024-12-16] MEDS: QUEtiapine 25 MG TAB PO SCH (21:22)
[2024-12-17] MEDS: Thiamine 100 MG TAB PO SCH (08:47)
[2024-12-19 08:44] VITALS: TEMP 98.9
[2024-12-19 11:49] VITALS: BP 148/67
[2024-12-22] MEDS ORDERED: Thiamine 100 MG TAB PO SCH (09:00)
== END 2024-12-19 11:13 | disposition home or self-care (01) | DRG 71 ==
LOC: ERS 13:41 → 2SE 19:33 → T4-A 12-16 20:19
PROVIDERS: ADMIT Family Medicine; ATTEND Internal Medicine
PROC: XX20X89 Monitoring of Brain Electrical Activity, Computer-aided Detection and Notification, New Technology Group 9 (ICD-10-PCS; principal; 2024-12-14)
DX: G93.40 Encephalopathy, unspecified (principal); F03.93 Unspecified dementia, unspecified severity, with mood disturbance; F03.94 Unspecified dementia, unspecified severity, with anxiety; F05 Delirium due to known physiological condition; M19.90 Unspecified osteoarthritis, unspecified site; I25.10 Atherosclerotic heart disease of native coronary artery without angina pectoris; E78.5 Hyperlipidemia, unspecified; L40.8 Other psoriasis; G89.4 Chronic pain syndrome; I73.9 Peripheral vascular disease, unspecified; J01.90 Acute sinusitis, unspecified; Z66 Do not resuscitate; F32.A Depression, unspecified; F41.9 Anxiety disorder, unspecified; I10 Essential (primary) hypertension; Z91.040 Latex allergy status; Z88.8 Allergy status to other drugs, medicaments and biological substances; Z79.899 Other long term (current) drug therapy; Z98.891 History of uterine scar from previous surgery; Z90.710 Acquired absence of both cervix and uterus; Z95.818 Presence of other cardiac implants and grafts; Z87.891 Personal history of nicotine dependence; Z88.1 Allergy status to other antibiotic agents; Z91.013 Allergy to seafood; Z88.7 Allergy status to serum and vaccine; Z91.041 Radiographic dye allergy status; R41.82 Altered mental status, unspecified; Z95.5 Presence of coronary angioplasty implant and graft; Z75.3 Unavailability and inaccessibility of health-care facilities; Z79.82 Long term (current) use of aspirin
CPT/HCPCS: 36415; 36416; 70450; 70551; 80053; 80306; 80307; 81001; 82607; 83735; 84443; 84484; 85025; 86780; 87389; 93005; 95812; 99285; J3411

== ENCOUNTER 2024-12-20 06:17 | Emergency (ER) | payer MEDICARE, OTHER ==
[2024-12-20 06:57] LABS: #Basophils 0.06 10x3/uL (0.0-0.2); #Eosinophils 0.27 10x3/uL (0.0-0.7); #Monocytes 1.46 10x3/uL (0.11-0.59); #Neutrophils 5.85 10x3/uL (1.40-6.50); %Basophils 0.6 % (0.0-1.0); %Eosinophils 2.7 % (0.0-10.0); %Lymphocytes 22.4 % (21.0-51.0); %Monocytes 14.8 % (0.0-10.0); %Neutrophils 59.2 % (42.0-75.0); Hematocrit 40.1 % (36.0-47.0); Hemoglobin 12.1 g/dL (12.0-16.0); Mean Corpuscular Hemoglobin 29.2 pg (27.0-31.0); Mean Corpuscular Volume 96.9 fL (78.0-98.0); Platelet Count 257 10x3/uL (130-400); Red Blood Cell (RBC) Count 4.14 mill/uL (4.20-5.40); White Blood Cell (WBC) Count 9.89 10x3/uL (4.8-10.8)
[2024-12-20 07:11] LABS: INR-International Normal Ratio 1.0; Prothrombin Time 13.4 sec (12.0-14.7)
[2024-12-20 07:12] LABS: ALT (SGPT) 9 U/L (Less than 34); AST (SGOT) 24 U/L (11-34); Albumin 3.9 g/dL (3.1-4.5); Alkaline Phosphatase 47 U/L (40-110); Anion Gap 11 mmol/L (10-20); BUN (Urea Nitrogen) 34 mg/dL (9.8-20.1); Bilirubin, Total 0.4 mg/dL (0.3-1.2); CK (CPK) 80 U/L (29-168); Calc. Creatinine Clearance 0 mL/min (70-130); Calcium 9.5 mg/dL (7.8-10.44); Carbon Dioxide 30 mmol/L (23-31); Chloride 103 mmol/L (98-107); Globulin 2.8 g/dL (2.4-3.5); Glucose 94 mg/dL (83-110); Lipase 52 U/L (8-78); Magnesium 2.7 mg/dL (1.6-2.6); PTT 24.8 sec (22.9-36.1); Potassium 4.3 mmol/L (3.5-5.1); Sodium 140 mmol/L (136-145)
[2024-12-20 07:48] LABS: Bacteria/HPF None Seen HPF (None Seen); CAUTI Indications for Culture Alt mental st,lethar; Glucose, Urine (Dipstick) Normal (Negative); Leukocyte Negative Leu/uL (Negative); Protein, Urine (Dipstick) Negative (Neg-Trace); RBC/HPF None Seen HPF (0-3); Specific Gravity, Urine 1.013 (1.002-1.036); WBC/HPF 0-3 HPF (0-3)
[2024-12-20 07:51] LABS: Urine Culture Reflex No No
== END 2024-12-20 08:30 | disposition home or self-care (01) ==
LOC: ERS 06:17
DX: S06.0X0A Concussion without loss of consciousness, initial encounter (principal); M54.9 Dorsalgia, unspecified; I10 Essential (primary) hypertension; E78.5 Hyperlipidemia, unspecified; I25.10 Atherosclerotic heart disease of native coronary artery without angina pectoris; I73.9 Peripheral vascular disease, unspecified; W18.30XA Fall on same level, unspecified, initial encounter; Z95.0 Presence of cardiac pacemaker; Z55.6 Problems related to health literacy; Z87.891 Personal history of nicotine dependence
CPT/HCPCS: 70450; 71250; 72125; 74177; 80053; 81001; 82550; 83690; 83735; 84484; 85025; 85610; 85730; 93005; J2270; Q0162; 36415; 96372

== ENCOUNTER 2025-01-15 09:36 | Emergency (ER) | payer MEDICARE, OTHER | END 2025-01-15 13:06 | disposition short-term general hospital (02) | LOC: ERS 09:36 | DX: T76.21XA Adult sexual abuse, suspected, initial encounter (principal); S00.12XA Contusion of left eyelid and periocular area, initial encounter; I10 Essential (primary) hypertension; E78.5 Hyperlipidemia, unspecified; I25.10 Atherosclerotic heart disease of native coronary artery without angina pectoris; Z79.899 Other long term (current) drug therapy; Z79.82 Long term (current) use of aspirin; Z87.891 Personal history of nicotine dependence; Y04.2XXA Assault by strike against or bumped into by another person, initial encounter | CPT/HCPCS: 70450; 70486; 72125; 73610; 93005; J2060; 96374 ==

== ENCOUNTER 2025-01-16 01:23 | Inpatient (IN) | payer MEDICARE, OTHER ==
[2025-01-16] MEDS ORDERED: Electrolyte Replacement Protocol 1 EACH FS PRN (03:00)
[2025-01-16] MEDS ORDERED: Calcium Carbonate 500 MG ChewTAB PO PRN (03:00)
[2025-01-16] MEDS ORDERED: Ondansetron PF 4 MG/2 ML Vial IVP PRN (03:00)
[2025-01-16 03:22] VITALS: BMI 21.7
[2025-01-16 04:10] LABS: #Basophils 0.05 10x3/uL (0.0-0.2); #Eosinophils 0.13 10x3/uL (0.0-0.7); #Monocytes 1.02 10x3/uL (0.11-0.59); #Neutrophils 4.61 10x3/uL (1.40-6.50); %Basophils 0.7 % (0.0-1.0); %Eosinophils 1.8 % (0.0-10.0); %Lymphocytes 20.9 % (21.0-51.0); %Monocytes 13.9 % (0.0-10.0); %Neutrophils 62.6 % (42.0-75.0); Hematocrit 35.1 % (36.0-47.0); Hemoglobin 10.8 g/dL (12.0-16.0); Mean Corpuscular Hemoglobin 28.9 pg (27.0-31.0); Mean Corpuscular Volume 93.9 fL (78.0-98.0); Platelet Count 273 10x3/uL (130-400); Red Blood Cell (RBC) Count 3.74 mill/uL (4.20-5.40); White Blood Cell (WBC) Count 7.36 10x3/uL (4.8-10.8)
[2025-01-16 04:35] LABS: ALT (SGPT) 8 U/L (Less than 34); AST (SGOT) 18 U/L (11-34); Albumin 3.7 g/dL (3.1-4.5); Alkaline Phosphatase 56 U/L (40-110); Anion Gap 13 mmol/L (10-20); BUN (Urea Nitrogen) 17 mg/dL (9.8-20.1); Bilirubin, Total 0.3 mg/dL (0.3-1.2); Calc. Creatinine Clearance 42 mL/min (70-130); Calcium 10.0 mg/dL (7.8-10.44); Carbon Dioxide 28 mmol/L (23-31); Chloride 104 mmol/L (98-107); Globulin 2.7 g/dL (2.4-3.5); Glucose 97 mg/dL (83-110); Potassium 3.6 mmol/L (3.5-5.1); Sodium 141 mmol/L (136-145)
[2025-01-16] MEDS: Sertraline 100 MG TAB PO SCH (07:47)
[2025-01-16] MEDS: Aspirin 81 mg Enteric Coated Tablet PO SCH (07:48)
[2025-01-16] MEDS: Metoprolol Succinate XL 100 MG ER.TAB PO SCH (07:48)
[2025-01-16] MEDS: Thiamine 100 MG TAB PO SCH (07:48)
[2025-01-16] MEDS: QUEtiapine 25 MG TAB PO SCH ×2 (07:48→20:17)
[2025-01-16] MEDS: Losartan 25 MG TAB PO SCH (07:48)
[2025-01-17 05:36] LABS: #Basophils 0.04 10x3/uL (0.0-0.2); #Eosinophils 0.09 10x3/uL (0.0-0.7); #Monocytes 1.28 10x3/uL (0.11-0.59); #Neutrophils 5.46 10x3/uL (1.40-6.50); %Basophils 0.5 % (0.0-1.0); %Eosinophils 1.1 % (0.0-10.0); %Lymphocytes 19.4 % (21.0-51.0); %Monocytes 15.0 % (0.0-10.0); %Neutrophils 63.8 % (42.0-75.0); Hematocrit 37.4 % (36.0-47.0); Hemoglobin 11.5 g/dL (12.0-16.0); Mean Corpuscular Hemoglobin 28.6 pg (27.0-31.0); Mean Corpuscular Volume 93.0 fL (78.0-98.0); Platelet Count 281 10x3/uL (130-400); Red Blood Cell (RBC) Count 4.02 mill/uL (4.20-5.40); White Blood Cell (WBC) Count 8.55 10x3/uL (4.8-10.8)
[2025-01-17 05:52] LABS: Anion Gap 13 mmol/L (10-20); BUN (Urea Nitrogen) 17 mg/dL (9.8-20.1); Calc. Creatinine Clearance 45 mL/min (70-130); Calcium 10.0 mg/dL (7.8-10.44); Carbon Dioxide 26 mmol/L (23-31); Chloride 107 mmol/L (98-107); Glucose 87 mg/dL (83-110); Potassium 3.4 mmol/L (3.5-5.1); Sodium 143 mmol/L (136-145)
[2025-01-17] MEDS: Enoxaparin 40 MG (0.4 mL) SYRINGE SC SCH (09:26)
[2025-01-17] MEDS: HYDROcodone/Acetaminophen 5/325 mg Tablet PO PRN (14:17)
[2025-01-17] MEDS: Acetaminophen 325 MG TAB PO PRN (18:00)
[2025-01-18] MEDS: Ibuprofen 200 MG TAB PO PRN (18:07)
[2025-01-18] MEDS: OLANZapine 5 MG TAB PO SCH (22:35)
[2025-01-19] MEDS: hydrALAZINE 20 MG/ML VIAL SLOW IVP SCH (14:52)
[2025-01-19 19:28] VITALS: BP 150/72; TEMP 98.8
== END 2025-01-20 10:19 | DRG 884 ==
LOC: 2NO 02:42 → T4-B 14:51 → OBSVTOIN 01-17 15:31 → T4-B 01-18 08:12
PROVIDERS: ADMIT Student in an Organized Health Care Education/Training Program; ATTEND Student in an Organized Health Care Education/Training Program
DX: F03.C18 Unspecified dementia, severe, with other behavioral disturbance (principal); G92.8 Other toxic encephalopathy; F03.C4 Unspecified dementia, severe, with anxiety; I10 Essential (primary) hypertension; I25.10 Atherosclerotic heart disease of native coronary artery without angina pectoris; I73.9 Peripheral vascular disease, unspecified; R58 Hemorrhage, not elsewhere classified; F91.9 Conduct disorder, unspecified; F32.A Depression, unspecified; E78.5 Hyperlipidemia, unspecified; D64.9 Anemia, unspecified; M19.90 Unspecified osteoarthritis, unspecified site; Z88.1 Allergy status to other antibiotic agents; Z88.8 Allergy status to other drugs, medicaments and biological substances; Z91.013 Allergy to seafood; Z79.82 Long term (current) use of aspirin; Z79.899 Other long term (current) drug therapy
CPT/HCPCS: 36415; 70450; 70486; 72125; 80048; 80053; 85025; 93005; 96372; 96374; 96375; G0378; J1650; J2060

== ENCOUNTER 2025-02-03 18:05 | Emergency (ER) | payer MEDICARE, OTHER ==
[2025-02-03 19:17] LABS: #Basophils 0.04 10x3/uL (0.0-0.2); #Eosinophils 0.28 10x3/uL (0.0-0.7); #Monocytes 1.08 10x3/uL (0.11-0.59); #Neutrophils 5.20 10x3/uL (1.40-6.50); %Basophils 0.5 % (0.0-1.0); %Eosinophils 3.3 % (0.0-10.0); %Lymphocytes 22.1 % (21.0-51.0); %Monocytes 12.7 % (0.0-10.0); %Neutrophils 61.0 % (42.0-75.0); Hematocrit 34.9 % (36.0-47.0); Hemoglobin 10.3 g/dL (12.0-16.0); Mean Corpuscular Hemoglobin 28.6 pg (27.0-31.0); Mean Corpuscular Volume 96.9 fL (78.0-98.0); Platelet Count 303 10x3/uL (130-400); Red Blood Cell (RBC) Count 3.60 mill/uL (4.20-5.40); White Blood Cell (WBC) Count 8.51 10x3/uL (4.8-10.8)
[2025-02-03 19:35] LABS: ALT (SGPT) Less than 7 U/L (Less than 34); AST (SGOT) 18 U/L (11-34); Albumin 3.4 g/dL (3.1-4.5); Alkaline Phosphatase 55 U/L (40-110); Anion Gap 15 mmol/L (10-20); BUN (Urea Nitrogen) 25 mg/dL (9.8-20.1); Bilirubin, Total 0.4 mg/dL (0.3-1.2); Calc. Creatinine Clearance 0 mL/min (70-130); Calcium 9.4 mg/dL (7.8-10.44); Carbon Dioxide 29 mmol/L (23-31); Chloride 105 mmol/L (98-107); Globulin 2.7 g/dL (2.4-3.5); Glucose 92 mg/dL (83-110); Potassium 4.6 mmol/L (3.5-5.1); Sodium 144 mmol/L (136-145)
== END 2025-02-04 00:18 | disposition home or self-care (01) ==
LOC: ERS 18:05
DX: R06.02 Shortness of breath (principal)
CPT/HCPCS: 71045; 80053; 83880; 84484; 85025; 93005; 94760; J1630; 36415; 96372

== ENCOUNTER 2025-02-09 10:41 | Emergency (ER) | payer MEDICARE, OTHER | END 2025-02-09 16:20 | disposition home or self-care (01) | LOC: ERS 10:41 | DX: R60.0 Localized edema (principal); M79.662 Pain in left lower leg; I10 Essential (primary) hypertension ==

== ENCOUNTER 2025-03-07 13:37 | Emergency (ER) | payer MEDICARE ==
[2025-03-07] MEDS ORDERED: Ondansetron PF 4 MG/2 ML Vial ONE (16:03)
== END 2025-03-07 17:52 | disposition home or self-care (01) ==
LOC: ERS 13:37
DX: S22.019A Unspecified fracture of first thoracic vertebra, initial encounter for closed fracture (principal); S22.029A Unspecified fracture of second thoracic vertebra, initial encounter for closed fracture; W19.XXXA Unspecified fall, initial encounter; Y92.129 Unspecified place in nursing home as the place of occurrence of the external cause
CPT/HCPCS: 70450; 72125; 93005; 96374; 96375; J2272; J2405

== ENCOUNTER 2025-04-28 12:56 | Emergency (ER) | payer MEDICARE ==
[2025-04-28 13:30] LABS: #Basophils 0.04 10x3/uL (0.0-0.2); #Eosinophils 0.12 10x3/uL (0.0-0.7); #Monocytes 0.82 10x3/uL (0.11-0.59); #Neutrophils 5.32 10x3/uL (1.40-6.50); %Basophils 0.5 % (0.0-1.0); %Eosinophils 1.5 % (0.0-10.0); %Lymphocytes 20.6 % (21.0-51.0); %Monocytes 10.3 % (0.0-10.0); %Neutrophils 66.5 % (42.0-75.0); Hematocrit 39.1 % (36.0-47.0); Hemoglobin 11.3 g/dL (12.0-16.0); Mean Corpuscular Hemoglobin 26.1 pg (27.0-31.0); Mean Corpuscular Volume 90.3 fL (78.0-98.0); Platelet Count 209 10x3/uL (130-400); Red Blood Cell (RBC) Count 4.33 mill/uL (4.20-5.40); White Blood Cell (WBC) Count 8.00 10x3/uL (4.8-10.8)
[2025-04-28 13:41] LABS: ALT (SGPT) 9 U/L (Less than 34); AST (SGOT) 19 U/L (11-34); Albumin 3.3 g/dL (3.1-4.5); Alkaline Phosphatase 76 U/L (40-110); Anion Gap 13 mmol/L (10-20); BUN (Urea Nitrogen) 20 mg/dL (9.8-20.1); Bilirubin, Total 0.2 mg/dL (0.3-1.2); Calc. Creatinine Clearance 0 mL/min (70-130); Calcium 9.4 mg/dL (7.8-10.44); Carbon Dioxide 27 mmol/L (23-31); Chloride 104 mmol/L (98-107); Globulin 3.2 g/dL (2.4-3.5); Glucose 84 mg/dL (83-110); Potassium 4.4 mmol/L (3.5-5.1); Sodium 140 mmol/L (136-145)
[2025-04-28] MEDS ORDERED: HYDROcodone/Acetaminophen 10/325 mg Tablet ONE (15:41)
== END 2025-04-28 17:48 | disposition home or self-care (01) ==
LOC: ERS 12:56
DX: S12.9XXA Fracture of neck, unspecified, initial encounter (principal); S22.009A Unspecified fracture of unspecified thoracic vertebra, initial encounter for closed fracture; I10 Essential (primary) hypertension; W07.XXXA Fall from chair, initial encounter; Y93.9 Activity, unspecified; Z79.82 Long term (current) use of aspirin; Z79.899 Other long term (current) drug therapy
CPT/HCPCS: 70450; 72125; 80053; 85025; 93005; J1630; 96374

== ENCOUNTER 2025-04-30 13:35 | Emergency (ER) | payer MEDICARE ==
[2025-04-30 13:57] LABS: #Basophils Less than 0.03 10x3/uL (0.0-0.2); #Eosinophils 0.13 10x3/uL (0.0-0.7); #Monocytes 0.80 10x3/uL (0.11-0.59); #Neutrophils 4.32 10x3/uL (1.40-6.50); %Basophils 0.3 % (0.0-1.0); %Eosinophils 1.8 % (0.0-10.0); %Lymphocytes 26.4 % (21.0-51.0); %Monocytes 11.2 % (0.0-10.0); %Neutrophils 60.2 % (42.0-75.0); Hematocrit 36.1 % (36.0-47.0); Hemoglobin 10.7 g/dL (12.0-16.0); Mean Corpuscular Hemoglobin 25.9 pg (27.0-31.0); Mean Corpuscular Volume 87.4 fL (78.0-98.0); Platelet Count 249 10x3/uL (130-400); Red Blood Cell (RBC) Count 4.13 mill/uL (4.20-5.40); White Blood Cell (WBC) Count 7.17 10x3/uL (4.8-10.8)
[2025-04-30 14:13] LABS: ALT (SGPT) 9 U/L (Less than 34); AST (SGOT) 15 U/L (11-34); Albumin 3.4 g/dL (3.1-4.5); Alkaline Phosphatase 75 U/L (40-110); Anion Gap 12 mmol/L (10-20); BUN (Urea Nitrogen) 17 mg/dL (9.8-20.1); Bilirubin, Total 0.2 mg/dL (0.3-1.2); Calc. Creatinine Clearance 0 mL/min (70-130); Calcium 9.5 mg/dL (7.8-10.44); Carbon Dioxide 28 mmol/L (23-31); Chloride 103 mmol/L (98-107); Globulin 3.0 g/dL (2.4-3.5); Glucose 140 mg/dL (83-110); Potassium 4.4 mmol/L (3.5-5.1); Sodium 139 mmol/L (136-145)
== END 2025-04-30 18:32 ==
LOC: ERS 13:35
DX: R07.9 Chest pain, unspecified (principal); F03.90 Unspecified dementia, unspecified severity, without behavioral disturbance, psychotic disturbance, mood disturbance, and anxiety; I48.91 Unspecified atrial fibrillation; I10 Essential (primary) hypertension; Z55.6 Problems related to health literacy
CPT/HCPCS: 71045; 80053; 83880; 84484 ×2; 85025; 93005; J1630; 36415; 96372